=== PATIENT | female | born 1965 | race Caucasian/White ===

== ENCOUNTER 2021-10-15 19:29 | Emergency (ER) | payer OTHER ==
[~2021-10-15] VITALS: Ht 157.5 cm; Wt 45.0 kg
[2021-10-15 19:36] VITALS: BP 119/81
== END 2021-10-15 23:18 | disposition left against medical advice (07) ==
LOC: ER 19:29 → EDBD 19:29 → ER 23:18
DX: S01.00XA Unspecified open wound of scalp, initial encounter (principal); Z53.21 Procedure and treatment not carried out due to patient leaving prior to being seen by health care provider; W18.39XA Other fall on same level, initial encounter; Y93.89 Activity, other specified; Y92.89 Other specified places as the place of occurrence of the external cause; Y99.8 Other external cause status

== ENCOUNTER 2023-05-16 02:24 | Inpatient (IN) | payer OTHER ==
[~2023-05-16] VITALS: Ht 162.6 cm; Wt 36.2 kg
[2023-05-16] VITALS (63 sets, daily range): BP systolic 75–109; BP diastolic 35–77; PULSE 79–98; RESP 13–32; TEMP 89.8–98.8; O2SAT 96–100
[2023-05-16] MEDS: NOREPINEPHRINE 8 MG/250ML KIT 250 ML IV ONE (02:32)
[2023-05-16 02:57] LABS: Hemoglobin 12.8 g/dL (12.2-16.2)
[2023-05-16 02:58] LABS: Hematocrit 40.4 % (36.0-46.0); Mean Corpuscular Hemoglobin 37.6 pg (28.0-32.0); Mean Corpuscular Hgb Conc. 31.6 g/dL (32.0-36.0); Mean Corpuscular Volume 118.9 fL (80.0-100.0); Red Cell Distribution Width 14.5 % (11.8-14.3); White Blood Cell 9.7 10^3/uL (4.4-10.8)
[2023-05-16 03:07] LABS: Chloride 103 mmol/L (98-107); Sodium 136 mmol/L (136-145)
[2023-05-16 03:08] LABS: Anion Gap 22 (5-15); Carbon Dioxide 11 mmol/L (20-30)
[2023-05-16 03:09] LABS: Calcium 6.9 mg/dL (8.7-10.4)
[2023-05-16 03:13] LABS: Glucose 189 mg/dL (74-106)
[2023-05-16 03:14] LABS: BUN/Creatinine Ratio 20.6 (10.0-20.0); Blood Urea Nitrogen 13 mg/dL (9-23)
[2023-05-16 03:17] LABS: Basophils % (manual) 0 (0.0-2.0); Blast Cells 0; Eosinophils % (manual) 0 (0-7); Metamyelocytes % 0; Myelocytes % 0; Promyelocytes % 0; Reactive Lymphocytes 0
[2023-05-16 03:21] LABS: Potassium 5.6 mmol/L (3.5-5.1)
[2023-05-16 03:46] LABS: Base Excess -21.4 mmol/L (-2.0-2.0)
[2023-05-16 03:55] LABS: Urine Bacteria MANY /hpf (None Seen); Urine Blood Negative /uL (Negative); Urine Clarity HAZY (Clear); Urine Color Yellow (Yellow); Urine Mucus FEW (None Seen); Urine Protein, UAD 2+ (Negative); Urine Specific Gravity 1.025 (1.001-1.035); Urine WBC 34 /hpf (0 - 5)
[2023-05-16 04:04] LABS: Amphetamine Screen, Urine Neg (NEGATIVE); Benzodiazephine Screen, Urine Neg (NEGATIVE)
[2023-05-16 04:05] LABS: Band Neutrophils % (manual) 11; Lymphocytes % (manual) 24 (10.0-50.0); Macrocytosis Marked; Monocytes % (manual) 10 (0-12); Stomatocytes Moderate
[2023-05-16 04:05] LABS: Barbiturate Scree,Urine Neg (NEGATIVE); Cannabinoid Screen, Urine Pos (NEGATIVE); Cocaine Screen, Urine Neg (NEGATIVE); Opiate Scree,Urine Neg (NEGATIVE); Phencyclidine Screen, Urine Neg (NEGATIVE)
[2023-05-16 04:06] LABS: Platelet Estimate Decreased
[2023-05-16 04:22] LABS: Lactic Acid w/Reflex 11.5 mmol/L (0.4-2.0)
[2023-05-16] MEDS: NOREPINEPHRINE 8 MG/250ML KIT 250 ML IV SCH ×2 (04:40→07:15)
[2023-05-16] MEDS: SODIUM BICARB 8.4% 50Meq/50ml SYR Vial IV ONE ×2 (04:45→13:02)
[2023-05-16] MEDS: SODIUM CHLORIDE 0.9% 1,000 ML IV ONE ×2 (04:51→05:37)
[2023-05-16] MEDS: PROPOFOL 100 ML IV SCH (05:30)
[2023-05-16] MEDS: cefTRIAXone 1GM/50ML D5W 50 ML IV ONE (05:46)
[2023-05-16] MEDS ORDERED: ALBUTEROL SULF 2.5 MG/0.5ML(0.5%) NEB SOLN NEB PRN (06:15)
[2023-05-16] MEDS ORDERED: SODIUM ZIRCONIUM CYCL 10 GM PAK PO ONE (06:15)
[2023-05-16] MEDS ORDERED: MORPHINE SULFATE INJ 2 MG/ml SYRG IV PRN (06:15)
[2023-05-16] MEDS ORDERED: NITROGLYCERIN 0.4 MG SL TAB SL PRN (06:15)
[2023-05-16] MEDS ORDERED: ONDANSETRON HCL 4 MG/2 ML VIAL IV PRN (06:15)
[2023-05-16] MEDS ORDERED: ACETAMINOPHEN 325 MG TAB PO PRN (06:15)
[2023-05-16] MEDS: MIDAZOLAM DRIP 50 mg/50mL 50 ML IV SCH (06:28)
[2023-05-16 06:54] LABS: Base Excess -15.5 mmol/L (-2.0-2.0)
[2023-05-16 07:06] LABS: Albumin 2.8 g/dL (3.2-4.8); Alkaline Phosphatase 249 U/L (46-116); Anion Gap 23.00001 (5-15); BUN/Creatinine Ratio 22.6 (10.0-20.0); Blood Urea Nitrogen 12 mg/dL (9-23); Calcium 8.1 mg/dL (8.7-10.4); Chloride 106 mmol/L (98-107); Glucose 69 mg/dL (74-106); Potassium 5.4 mmol/L (3.5-5.1); Sodium 139 mmol/L (136-145)
[2023-05-16 07:07] LABS: Bilirubin, Total 3.6 mg/dL (0.2-1.0); Total Protein 4.8 g/dL (5.7-8.2)
[2023-05-16 07:17] LABS: Alanine Aminotransferase 3031 U/L (7-40)
[2023-05-16 07:24] LABS: Aspartate Aminotransferase > 6000 U/L (13-40)
[2023-05-16 07:26] LABS: Carbon Dioxide < 10 mmol/L (20-30)
[2023-05-16] MEDS: SODIUM ZIRCONIUM CYCL 10 GM PAK GT ONE (08:32)
[2023-05-16] MEDS: SODIUM BICARB 50mEq/50ml Vial 50 ML in SOD CHL 0.45% 1,000 ML IV SCH (09:00)
[2023-05-16] MEDS: DEXTROSE (50%) 50ML SYRG IV ONE (09:01)
[2023-05-16] MEDS: SODIUM CHLORIDE 0.9% 1,000 ML IV SCH ×2 (09:40→15:54)
[2023-05-16] MEDS: ENOXAPARIN SOD 40 MG/0.4 ML SYRINGE SC SCH (11:05)
[2023-05-16] MEDS: fentaNYL Drip 2500mCg/250mlNS 250 ML IV SCH (13:05)
[2023-05-16] MEDS: PANTOPRAZOLE 40 MG/10 ML VIAL INJ IV SCH (14:02)
[2023-05-16] MEDS: MEROPENEM 1GM IVPB 50 ML IV SCH (14:02)
[2023-05-16 14:43] LABS: Chloride 110 mmol/L (98-107); Potassium 3.5 mmol/L (3.5-5.1)
[2023-05-16 14:44] LABS: Anion Gap 16 (5-15); Calcium 6.6 mg/dL (8.5-10.1); Carbon Dioxide 20 mmol/L (20-30)
[2023-05-16 14:49] LABS: BUN/Creatinine Ratio 17.3 (10.0-20.0); Blood Urea Nitrogen 17 mg/dL (9-23); Glucose 160 mg/dL (74-106)
[2023-05-16 14:52] LABS: Sodium 146 mmol/L (136-145)
[2023-05-16 14:54] LABS: Lactic Acid w/Reflex 6.1 mmol/L (0.4-2.0)
[2023-05-16] MEDS: SODIUM CHLORIDE 0.9% 500 ML IV ONE ×2 (15:54→20:40)
[2023-05-16] MEDS: THIAMINE 100mg/ml INJ (200mg/2ml VIAL) IV SCH (16:38)
[2023-05-16] MEDS: FOLIC ACID 1 MG in D5W 5% 50 ML INJ ONE (16:43)
[2023-05-16] MEDS: ALBUMIN 5% 250 ML IV ONE (20:35)
[2023-05-16] MEDS: VASOPRESSIN 20 UNITS in SODIUM CHL 0.9% 99 ML IV SCH (22:16)
[2023-05-17] VITALS (95 sets, daily range): BP systolic 82–112; BP diastolic 49–77; PULSE 80–99; RESP 14–42; TEMP 97–99.1; O2SAT 93–100
[2023-05-17 04:21] LABS: Basophils # (auto) 0 10 ^3/uL (0-0.2); Basophils % (auto) 0.1 % (0.0-2.0); Hemoglobin 12.2 g/dL (12.2-16.2); Neutrophils # (auto) 16.4 10 ^3/uL (1.6-8.6); Red Blood Cells 3.23 10^6/uL (4.0-5.20); Red Cell Distribution Width 14.2 % (11.8-14.3); White Blood Cell 18.4 10^3/uL (4.4-10.8)
[2023-05-17 04:24] LABS: Eosinophils # (auto) 0.1 10 ^3/uL (0-0.8); Eosinophils % (auto) 0.4 % (0.0-7.0); Hematocrit 37.5 % (36.0-46.0); Lymphocytes # (auto) 1.7 10 ^3/uL (0.4-5.4); Lymphocytes % (auto) 9.1 % (10.0-50.0); Mean Corpuscular Hemoglobin 37.6 pg (28.0-32.0); Mean Corpuscular Hgb Conc. 32.4 g/dL (32.0-36.0); Mean Corpuscular Volume 116.2 fL (80.0-100.0); Monocytes # (auto) 0.2 10 ^3/uL (0-1.3); Monocytes % (auto) 1.3 % (0.0-12.0); Neutrophils % (auto) 89.1 % (37.0-80.0); Nucleated Red Blood Cells % 0.6 %
[2023-05-17 04:46] LABS: Albumin 2.6 g/dL (3.2-4.8); Alkaline Phosphatase 143 U/L (46-116); Anion Gap 13 (5-15); BUN/Creatinine Ratio 9.9 (10.0-20.0); Bilirubin, Total 4.9 mg/dL (0.2-1.0); Blood Urea Nitrogen 16 mg/dL (9-23); Carbon Dioxide 20 mmol/L (20-30); Chloride 114 mmol/L (98-107); Glucose 108 mg/dL (74-106); Potassium 3.8 mmol/L (3.5-5.1); Sodium 147 mmol/L (136-145); Total Protein 3.9 g/dL (5.7-8.2)
[2023-05-17 05:05] LABS: Lactic Acid w/Reflex 2.9 mmol/L (0.4-2.0)
[2023-05-17 05:06] LABS: Alanine Aminotransferase 1924 U/L (7-40); Aspartate Aminotransferase > 6000 U/L (13-40); Calcium 5.9 mg/dL (8.5-10.1)
[2023-05-17] MEDS ORDERED: cefTRIAXone 1GM/50ML D5W 50 ML IV SCH (06:00)
[2023-05-17] MEDS: FUROSEMIDE 20 MG/2 ML VIAL IV ONE (06:19)
[2023-05-17] MEDS: CALCIUM GLUC 1,000mg/50ml-NS 50 ML IV SCH (06:21)
[2023-05-17 07:33] LABS: Base Excess -10.3 mmol/L (-2.0-2.0)
[2023-05-17] MEDS: SOD CHL 0.45% 1,000 ML IV SCH (10:50)
[2023-05-17 14:26] LABS: Chloride 117 mmol/L (98-107); Potassium 3.8 mmol/L (3.5-5.1); Sodium 145 mmol/L (136-145)
[2023-05-17 14:27] LABS: Anion Gap 11 (5-15); Carbon Dioxide 17 mmol/L (20-30)
[2023-05-17 14:32] LABS: BUN/Creatinine Ratio 7.4 (10.0-20.0); Blood Urea Nitrogen 15 mg/dL (9-23); Glucose 79 mg/dL (74-106)
[2023-05-17] MEDS: BUMETANIDE 2.5mg/10ml (0.25 mg/ml) INJ IV ONE (15:42)
[2023-05-17] MEDS: EPINEPHrine HCL 250 ML IV SCH (18:45)
[2023-05-17] MEDS: HYDROCORTISONE SOD SUCC 100 MG/2ML INJ VIAL IV SCH (21:04)
[2023-05-18] VITALS (103 sets, daily range): BP systolic 87–154; BP diastolic 53–97; PULSE 57–105; RESP 14–28; TEMP 97–99.1; O2SAT 84–100
[2023-05-18] MEDS: MEROPENEM 1GM IVPB 50 ML IV SCH (01:16)
[2023-05-18 03:54] LABS: Basophils # (auto) 0 10 ^3/uL (0-0.2); Eosinophils # (auto) 0.1 10 ^3/uL (0-0.8); Monocytes # (auto) 0.4 10 ^3/uL (0-1.3); Neutrophils # (auto) 14.8 10 ^3/uL (1.6-8.6); White Blood Cell 16.4 10^3/uL (4.4-10.8)
[2023-05-18 03:56] LABS: Basophils % (auto) 0.1 % (0.0-2.0); Eosinophils % (auto) 0.5 % (0.0-7.0); Hematocrit 39.1 % (36.0-46.0); Hemoglobin 12.7 g/dL (12.2-16.2); Lymphocytes % (auto) 6.4 % (10.0-50.0); Mean Corpuscular Hgb Conc. 32.4 g/dL (32.0-36.0); Mean Corpuscular Volume 117.2 fL (80.0-100.0); Monocytes % (auto) 2.3 % (0.0-12.0); Neutrophils % (auto) 90.7 % (37.0-80.0); Nucleated Red Blood Cells % 1.1 %; Red Blood Cells 3.33 10^6/uL (4.0-5.20); Red Cell Distribution Width 14.6 % (11.8-14.3)
[2023-05-18 04:13] LABS: Albumin 2.5 g/dL (3.2-4.8); Alkaline Phosphatase 196 U/L (46-116); Anion Gap 15 (5-15); BUN/Creatinine Ratio 7.3 (10.0-20.0); Bilirubin, Total 5.7 mg/dL (0.2-1.0); Blood Urea Nitrogen 20 mg/dL (9-23); Calcium 6.2 mg/dL (8.5-10.1); Carbon Dioxide 15 mmol/L (20-30); Chloride 114 mmol/L (98-107); Glucose 70 mg/dL (74-106); Potassium 3.9 mmol/L (3.5-5.1); Sodium 144 mmol/L (136-145); Total Protein 3.7 g/dL (5.7-8.2)
[2023-05-18 04:26] LABS: Alanine Aminotransferase 1295 U/L (7-40); Aspartate Aminotransferase > 6000 U/L (13-40)
[2023-05-18] MEDS: IPRATROPIUM BROM 0.5 MG/2.5ML INH SOL NEB PRN (05:35)
[2023-05-18] MEDS: ALBUTEROL SULF 2.5 MG/0.5ML(0.5%) NEB SOLN NEB PRN (05:35)
[2023-05-18 07:39] LABS: Base Excess -15.2 mmol/L (-2.0-2.0)
[2023-05-18 08:55] LABS: Hepatitis B Surface Antigen Negative (Negative)
[2023-05-18 09:15] LABS: Hepatitis A Ab IgM Negative; Hepatitis B Core IgM Negative
[2023-05-18 09:16] LABS: Hepatitis C Antibody Negative (Negative)
[2023-05-18] MEDS: SODIUM BICARB 50mEq/50ml Vial 150 ML in D5W 5% 1,000 ML IV SCH (09:50)
[2023-05-18] MEDS ORDERED: ENOXAPARIN SOD 30 MG/0.3 ML SYRINGE SC SCH (10:00)
[2023-05-18 14:44] LABS: Base Excess -14.1 mmol/L (-2.0-2.0)
[2023-05-18] MEDS: LACTULOSE 10g/15ml SOLN 473ML PR ONE (17:25)
[2023-05-18] MEDS: MEROPENEM 500MG IVPB 50 ML IV SCH (18:07)
[2023-05-18 22:13] LABS: Protein, Urine 159.5 mg/dL (0.0-11.9)
[2023-05-18 22:16] LABS: Creatinine, Urine 19.12 mg/dL (30.0-125.0)
[2023-05-18] MEDS: METOCLOPRAMIDE HCL 5MG/ml INJ 2ml VIAL IV SCH (22:26)
[2023-05-18] MEDS: metroNIDAZOLE 500MG/100ML 100 ML IV SCH (22:47)
[2023-05-19] VITALS (112 sets, daily range): BP systolic 79–138; BP diastolic 60–100; PULSE 54–162; RESP 17–29; TEMP 97.6–98.8; O2SAT 87–100
[2023-05-19 04:27] LABS: Basophils # (auto) 0 10 ^3/uL (0-0.2); Eosinophils # (auto) 0 10 ^3/uL (0-0.8); Eosinophils % (auto) 0.4 % (0.0-7.0); Hemoglobin 8.6 g/dL (12.2-16.2); Nucleated Red Blood Cells % 0.3 %; White Blood Cell 10.7 10^3/uL (4.4-10.8)
[2023-05-19 04:29] LABS: Basophils % (auto) 0.1 % (0.0-2.0); Hematocrit 25.9 % (36.0-46.0); Lymphocytes # (auto) 1.2 10 ^3/uL (0.4-5.4); Lymphocytes % (auto) 10.9 % (10.0-50.0); Mean Corpuscular Hemoglobin 37.6 pg (28.0-32.0); Monocytes # (auto) 0.6 10 ^3/uL (0-1.3); Monocytes % (auto) 5.3 % (0.0-12.0); Neutrophils # (auto) 8.9 10 ^3/uL (1.6-8.6); Neutrophils % (auto) 83.3 % (37.0-80.0); Red Blood Cells 2.27 10^6/uL (4.0-5.20); Red Cell Distribution Width 14.4 % (11.8-14.3)
[2023-05-19 04:39] LABS: Alanine Aminotransferase 671 U/L (7-40); Alkaline Phosphatase 189 U/L (46-116); Anion Gap 13 (5-15); Blood Urea Nitrogen 25 mg/dL (9-23); Carbon Dioxide 19 mmol/L (20-30); Chloride 112 mmol/L (98-107); Glucose 200 mg/dL (74-106); Potassium 2.8 mmol/L (3.5-5.1); Sodium 144 mmol/L (136-145)
[2023-05-19 04:40] LABS: Albumin 1.9 g/dL (3.2-4.8); Bilirubin, Total 5.2 mg/dL (0.2-1.0); Total Protein 3.1 g/dL (5.7-8.2)
[2023-05-19 04:47] LABS: INR 2.1 (0.9-1.15)
[2023-05-19 04:50] LABS: Aspartate Aminotransferase 2174 U/L (13-40)
[2023-05-19 04:54] LABS: Calcium 5.6 mg/dL (8.7-10.4)
[2023-05-19] MEDS: CALCIUM GLUC 1,000mg/50ml-NS 50 ML IV ONE (06:40)
[2023-05-19] MEDS: POTASSIUM CHL 20MEQ/100ML 100 ML IV SCH (06:48)
[2023-05-19] MEDS: IPRATROPIUM BROM 0.5 MG/2.5ML INH SOL NEB SCH (12:37)
[2023-05-19] MEDS: ALBUTEROL SULF 2.5 MG/0.5ML(0.5%) NEB SOLN NEB SCH (12:38)
[2023-05-19] MEDS: ACETYLCYSTEINE 10 %(100MG/ML) SOL 4ML NEB SCH (12:38)
[2023-05-19 15:34] LABS: Base Excess -0.3 mmol/L (-2.0-2.0)
[2023-05-19] MEDS: AMIODARONE 450mg/250ml AE 250 ML IV SCH (20:30)
[2023-05-19] MEDS: AMIODARONE 450mg/250ml AE 250 ML IV ONE (20:30)
[2023-05-19] MEDS ORDERED: LORazepam 2MG/ML-1ML VIAL IV PRN (21:00)
[2023-05-20] VITALS (104 sets, daily range): BP systolic 32–112; BP diastolic 17–83; PULSE 56–76; RESP 15–26; TEMP 96.1–98.1; O2SAT 94–100
[2023-05-20] MEDS: AMIODARONE 450mg/250ml AE 250 ML IV SCH (02:30)
[2023-05-20 04:33] LABS: Basophils # (auto) 0 10 ^3/uL (0-0.2); Eosinophils # (auto) 0 10 ^3/uL (0-0.8); Eosinophils % (auto) 0.2 % (0.0-7.0); Monocytes # (auto) 0.9 10 ^3/uL (0-1.3); Neutrophils % (auto) 84.9 % (37.0-80.0); White Blood Cell 10.5 10^3/uL (4.4-10.8)
[2023-05-20 04:35] LABS: Basophils % (auto) 0.3 % (0.0-2.0); Hematocrit 35.3 % (36.0-46.0); Lymphocytes # (auto) 0.7 10 ^3/uL (0.4-5.4); Lymphocytes % (auto) 6.4 % (10.0-50.0); Mean Corpuscular Hemoglobin 37.6 pg (28.0-32.0); Mean Corpuscular Hgb Conc. 34.1 g/dL (32.0-36.0); Mean Corpuscular Volume 110.3 fL (80.0-100.0); Monocytes % (auto) 8.2 % (0.0-12.0); Neutrophils # (auto) 8.9 10 ^3/uL (1.6-8.6); Nucleated Red Blood Cells % 0.5 %; Red Cell Distribution Width 13.8 % (11.8-14.3)
[2023-05-20 05:08] LABS: Alanine Aminotransferase 446 U/L (7-40); Alkaline Phosphatase 223 U/L (46-116); Anion Gap 10 (5-15); Blood Urea Nitrogen 30 mg/dL (9-23); Carbon Dioxide 25 mmol/L (20-30); Chloride 106 mmol/L (98-107); Glucose 215 mg/dL (74-106); Potassium 3.1 mmol/L (3.5-5.1); Sodium 141 mmol/L (136-145)
[2023-05-20 05:09] LABS: Bilirubin, Total 5.8 mg/dL (0.2-1.0); Total Protein 3.5 g/dL (5.7-8.2)
[2023-05-20 05:20] LABS: Aspartate Aminotransferase 997 U/L (13-40)
[2023-05-20 05:28] LABS: BUN/Creatinine Ratio 7.3 (10.0-20.0); Calcium 5.7 mg/dL (8.7-10.4)
[2023-05-20 06:53] LABS: Base Excess 1.8 mmol/L (-2.0-2.0)
[2023-05-20] MEDS: POTASSIUM CHL 20MEQ/100ML 100 ML IV ONE (08:42)
[2023-05-20] MEDS: CALCIUM GLUC 1,000mg/50ml-NS 50 ML IV SCH (08:42)
[2023-05-20] MEDS: cefTRIAXone 1GM/50ML D5W 50 ML IV SCH (08:42)
[2023-05-21] VITALS (103 sets, daily range): BP systolic 89–145; BP diastolic 59–100; PULSE 64–81; RESP 13–27; TEMP 97.6–98.1; O2SAT 9–97
[2023-05-21 03:44] LABS: Basophils # (auto) 0 10 ^3/uL (0-0.2); Eosinophils # (auto) 0 10 ^3/uL (0-0.8); Eosinophils % (auto) 0.2 % (0.0-7.0); Hemoglobin 11.8 g/dL (12.2-16.2); Lymphocytes # (auto) 0.7 10 ^3/uL (0.4-5.4); Neutrophils # (auto) 7.7 10 ^3/uL (1.6-8.6)
[2023-05-21 03:46] LABS: Basophils % (auto) 0.4 % (0.0-2.0); Hematocrit 34.4 % (36.0-46.0); Lymphocytes % (auto) 7.3 % (10.0-50.0); Mean Corpuscular Hgb Conc. 34.3 g/dL (32.0-36.0); Mean Corpuscular Volume 110.8 fL (80.0-100.0); Monocytes # (auto) 1.3 10 ^3/uL (0-1.3); Monocytes % (auto) 12.9 % (0.0-12.0); Neutrophils % (auto) 79.2 % (37.0-80.0); Nucleated Red Blood Cells % 0.3 %; Red Cell Distribution Width 14.1 % (11.8-14.3); White Blood Cell 9.7 10^3/uL (4.4-10.8)
[2023-05-21 04:02] LABS: Alanine Aminotransferase 275 U/L (7-40); Albumin 2.1 g/dL (3.2-4.8); Alkaline Phosphatase 226 U/L (46-116); Anion Gap 8 (5-15); Aspartate Aminotransferase 517 U/L (13-40); BUN/Creatinine Ratio 7.2 (10.0-20.0); Bilirubin, Total 5.7 mg/dL (0.2-1.0); Blood Urea Nitrogen 32 mg/dL (9-23); Calcium 6.5 mg/dL (8.7-10.4); Carbon Dioxide 31 mmol/L (20-30); Chloride 99 mmol/L (98-107); Glucose 185 mg/dL (74-106); Sodium 138 mmol/L (136-145); Total Protein 3.6 g/dL (5.7-8.2)
[2023-05-21 06:35] LABS: Base Excess 5.2 mmol/L (-2.0-2.0)
[2023-05-21] MEDS: POTASSIUM CHL 20MEQ/100ML 100 ML IV SCH (20:10)
[2023-05-21] MEDS: MAGNESIUM SULFATE 1GM/100ML 100 ML IV SCH (22:13)
[2023-05-22] VITALS (106 sets, daily range): BP systolic 97–171; BP diastolic 65–115; PULSE 62–96; RESP 11–27; TEMP 97.9–98.6; O2SAT 89–98
[2023-05-22 04:26] LABS: Anion Gap 5 (5-15); Carbon Dioxide 34 mmol/L (20-30); Chloride 97 mmol/L (98-107); Lymphocytes # (auto) 0.6 10 ^3/uL (0.4-5.4); Neutrophils # (auto) 7.1 10 ^3/uL (1.6-8.6); Nucleated Red Blood Cells % 0.4 %; Potassium 3.3 mmol/L (3.5-5.1); Red Blood Cells 3.19 10^6/uL (4.0-5.20); Sodium 136 mmol/L (136-145)
[2023-05-22 04:27] LABS: Calcium 6.5 mg/dL (8.7-10.4)
[2023-05-22 04:28] LABS: Basophils # (auto) 0 10 ^3/uL (0-0.2); Basophils % (auto) 0.4 % (0.0-2.0); Eosinophils # (auto) 0 10 ^3/uL (0-0.8); Eosinophils % (auto) 0.4 % (0.0-7.0); Hematocrit 34.5 % (36.0-46.0); Hemoglobin 11.7 g/dL (12.2-16.2); Lymphocytes % (auto) 6.8 % (10.0-50.0); Mean Corpuscular Hemoglobin 36.8 pg (28.0-32.0); Mean Corpuscular Volume 108.2 fL (80.0-100.0); Monocytes # (auto) 1.5 10 ^3/uL (0-1.3); Monocytes % (auto) 16.3 % (0.0-12.0); Neutrophils % (auto) 76.1 % (37.0-80.0); Red Cell Distribution Width 14.3 % (11.8-14.3); White Blood Cell 9.4 10^3/uL (4.4-10.8)
[2023-05-22 04:32] LABS: Blood Urea Nitrogen 34 mg/dL (9-23); Glucose 141 mg/dL (74-106)
[2023-05-22 04:55] LABS: Macrocytosis Moderate; Platelet Estimate Decreased; Stomatocytes Moderate; Target Cell FEW
[2023-05-22 07:14] LABS: Base Excess 10.9 mmol/L (-2.0-2.0)
[2023-05-22] MEDS: MIDAZOLAM HCL 2MG/2ML 2ml VIAL (1mg/ml) ONE ×2 (13:42→13:56)
[2023-05-22] MEDS: MIDAZOLAM HCL 2MG/2ML 2ml VIAL (1mg/ml) IV ONE (13:56)
[2023-05-22] MEDS: SODIUM CHL 0.9% 1000 ML BAG XX ONE (14:15)
[2023-05-22] MEDS: FLUCONAZOLE 200MG/100ML 100 ML IV SCH (15:37)
[2023-05-22] MEDS: ALBUMIN 25% 100 ML IV ONE (19:15)
[2023-05-22] MEDS: CATHFLO ACTIVASE (ALTEPLASE) 2 MG VIAL IV ONE (19:15)
[2023-05-22] MEDS: HEPARIN 1,000 UNITS/ml 1ML VIAL IV ONE ×2 (21:15)
[2023-05-23] VITALS (104 sets, daily range): BP systolic 87–133; BP diastolic 58–95; PULSE 63–107; RESP 15–28; TEMP 97.3–98; O2SAT 88–99
[2023-05-23 05:12] LABS: Red Cell Distribution Width 14.3 % (11.8-14.3); White Blood Cell 11.3 10^3/uL (4.4-10.8)
[2023-05-23 05:15] LABS: Hematocrit 32.5 % (36.0-46.0); Hemoglobin 10.8 g/dL (12.2-16.2); Mean Corpuscular Hgb Conc. 33.4 g/dL (32.0-36.0); Mean Corpuscular Volume 110.9 fL (80.0-100.0); Red Blood Cells 2.93 10^6/uL (4.0-5.20)
[2023-05-23 05:20] LABS: Basophils % (manual) 0 (0.0-2.0); Blast Cells 0; Eosinophils % (manual) 0 (0-7); Metamyelocytes % 0; Myelocytes % 0; Promyelocytes % 0; Reactive Lymphocytes 0
[2023-05-23 05:26] LABS: Calcium 7.6 mg/dL (8.7-10.4); Chloride 99 mmol/L (98-107); Potassium 3.4 mmol/L (3.5-5.1); Sodium 138 mmol/L (136-145)
[2023-05-23 05:27] LABS: Anion Gap 6 (5-15); Carbon Dioxide 33 mmol/L (20-30)
[2023-05-23 05:32] LABS: BUN/Creatinine Ratio 5.6 (10.0-20.0); Glucose 94 mg/dL (74-106)
[2023-05-23 06:09] LABS: Blood Urea Nitrogen 23 mg/dL (9-23)
[2023-05-23] MEDS: SODIUM CHL 0.9% 1000 ML BAG XX ONE (07:00)
[2023-05-23 07:44] LABS: Band Neutrophils % (manual) 1; Lymphocytes % (manual) 13 (10.0-50.0); Monocytes % (manual) 19 (0-12)
[2023-05-23 07:46] LABS: Platelet Estimate Decreased
[2023-05-23 07:47] LABS: Macrocytosis Moderate; Stomatocytes Many
[2023-05-23] MEDS ORDERED: MIDAZOLAM HCL 2MG/2ML 2ml VIAL (1mg/ml) IV ONE (08:45)
[2023-05-23] MEDS: LACTULOSE 20Gm/30ML SOLN GT SCH (11:04)
[2023-05-23] MEDS: AMIODARONE HCL 200 MG TAB PO SCH (11:04)
[2023-05-23 11:31] LABS: Base Excess 7.7 mmol/L (-2.0-2.0)
[2023-05-23] MEDS: ALBUMIN 25% 100 ML IV PRN (15:00)
[2023-05-23] MEDS: METOCLOPRAMIDE 10 mg/10ml ORAL soln GT SCH (15:10)
[2023-05-24] VITALS (106 sets, daily range): BP systolic 86–126; BP diastolic 56–89; PULSE 84–113; RESP 14–27; TEMP 97.5–98.8; O2SAT 91–99
[2023-05-24 04:08] LABS: Anion Gap 7 (5-15); Carbon Dioxide 33 mmol/L (20-30); Chloride 100 mmol/L (98-107); Potassium 3.5 mmol/L (3.5-5.1); Sodium 140 mmol/L (136-145)
[2023-05-24 04:10] LABS: Calcium 8.7 mg/dL (8.7-10.4)
[2023-05-24 04:14] LABS: Blood Urea Nitrogen 17 mg/dL (9-23); Glucose 71 mg/dL (74-106)
[2023-05-24 07:18] LABS: Base Excess 8.3 mmol/L (-2.0-2.0)
[2023-05-24] MEDS: FLUCONAZOLE 100 MG TAB PO SCH (09:44)
[2023-05-24] MEDS: AMIODARONE HCL 200 MG TAB PO SCH (09:45)
[2023-05-24] MEDS: METOPROLOL TARTRATE 25 MG TAB PO SCH (21:46)
[2023-05-25] VITALS (105 sets, daily range): BP systolic 85–118; BP diastolic 55–87; PULSE 70–102; RESP 15–20; TEMP 97.8–98.6; O2SAT 89–99
[2023-05-25 04:06] LABS: Hemoglobin 8.8 g/dL (12.2-16.2)
[2023-05-25 04:09] LABS: Hematocrit 26.1 % (36.0-46.0); Mean Corpuscular Hemoglobin 37.9 pg (28.0-32.0); Mean Corpuscular Hgb Conc. 33.9 g/dL (32.0-36.0); Mean Corpuscular Volume 111.8 fL (80.0-100.0); Red Blood Cells 2.33 10^6/uL (4.0-5.20); Red Cell Distribution Width 14.8 % (11.8-14.3); White Blood Cell 9.1 10^3/uL (4.4-10.8)
[2023-05-25 04:23] LABS: Alanine Aminotransferase 37 U/L (7-40); Albumin 2.6 g/dL (3.2-4.8); Alkaline Phosphatase 244 U/L (46-116); Anion Gap 3 (5-15); Aspartate Aminotransferase 119 U/L (13-40); BUN/Creatinine Ratio 5.3 (10.0-20.0); Basophils % (manual) 0 (0.0-2.0); Blast Cells 0; Blood Urea Nitrogen 22 mg/dL (9-23); Calcium 8.6 mg/dL (8.5-10.1); Carbon Dioxide 34 mmol/L (20-30); Chloride 102 mmol/L (98-107); Glucose 109 mg/dL (74-106); Metamyelocytes % 0; Myelocytes % 0; Potassium 3.3 mmol/L (3.5-5.1); Promyelocytes % 0; Reactive Lymphocytes 0; Sodium 139 mmol/L (136-145)
[2023-05-25 04:24] LABS: Bilirubin, Total 6.1 mg/dL (0.2-1.0); Total Protein 4.2 g/dL (5.7-8.2)
[2023-05-25 04:55] LABS: Anisocytosis Slight; Band Neutrophils % (manual) 10; Eosinophils % (manual) 2 (0-7); Hypochromia Slight; Lymphocytes % (manual) 10 (10.0-50.0); Macrocytosis Moderate; Monocytes % (manual) 13 (0-12); Platelet Estimate Decreased; Stomatocytes Many
[2023-05-25] MEDS: SODIUM CHL 0.9% 1000 ML BAG XX ONE (07:00)
[2023-05-25 07:42] LABS: Base Excess 5.1 mmol/L (-2.0-2.0)
[2023-05-25] MEDS: ALBUMIN 25% 100 ML IV SCH (14:19)
[2023-05-26] VITALS (107 sets, daily range): BP systolic 80–141; BP diastolic 49–98; PULSE 73–107; RESP 11–44; TEMP 98.1–98.6; O2SAT 86–98
[2023-05-26 04:13] LABS: Hemoglobin 8.1 g/dL (12.2-16.2)
[2023-05-26 04:17] LABS: Hematocrit 24.4 % (36.0-46.0); Mean Corpuscular Hemoglobin 37.4 pg (28.0-32.0); Mean Corpuscular Volume 113.5 fL (80.0-100.0); Red Blood Cells 2.15 10^6/uL (4.0-5.20); Red Cell Distribution Width 14.7 % (11.8-14.3); White Blood Cell 13.3 10^3/uL (4.4-10.8)
[2023-05-26 04:23] LABS: Basophils # (auto) 0 10 ^3/uL (0-0.2); Basophils % (auto) 0.1 % (0.0-2.0); Basophils % (manual) 0 (0.0-2.0); Blast Cells 0; Eosinophils # (auto) 0.2 10 ^3/uL (0-0.8); Eosinophils % (auto) 1.7 % (0.0-7.0); Eosinophils % (manual) 0 (0-7); Lymphocytes % (auto) 7.8 % (10.0-50.0); Metamyelocytes % 0; Monocytes # (auto) 1.5 10 ^3/uL (0-1.3); Monocytes % (auto) 11.5 % (0.0-12.0); Monocytes % (manual) 0 (0-12); Myelocytes % 0; Neutrophils # (auto) 10.5 10 ^3/uL (1.6-8.6); Neutrophils % (auto) 78.9 % (37.0-80.0); Nucleated Red Blood Cells % 0.1 %; Platelet Estimate Decreased; Promyelocytes % 0; Reactive Lymphocytes 0
[2023-05-26 04:33] LABS: Alanine Aminotransferase 32 U/L (7-40); Albumin 3.1 g/dL (3.2-4.8); Alkaline Phosphatase 206 U/L (46-116); Anion Gap 6 (5-15); Aspartate Aminotransferase 101 U/L (13-40); BUN/Creatinine Ratio 5.1 (10.0-20.0); Blood Urea Nitrogen 17 mg/dL (9-23); Carbon Dioxide 32 mmol/L (20-30); Chloride 105 mmol/L (98-107); Glucose 84 mg/dL (74-106); Potassium 3.4 mmol/L (3.5-5.1); Sodium 143 mmol/L (136-145)
[2023-05-26 04:34] LABS: Bilirubin, Total 5.9 mg/dL (0.2-1.0); Total Protein 4.6 g/dL (5.7-8.2)
[2023-05-26 04:39] LABS: Lymphocytes % (manual) 0 (10.0-50.0)
[2023-05-26 13:13] LABS: Base Excess 5.9 mmol/L (-2.0-2.0)
[2023-05-26] MEDS: ACETYLCYSTEINE 10 %(100MG/ML) SOL 4ML NEB SCH (19:33)
[2023-05-27] VITALS (104 sets, daily range): BP systolic 77–157; BP diastolic 32–126; PULSE 58–95; RESP 10–33; TEMP 97.8–98.7; O2SAT 90–100
[2023-05-27 04:53] LABS: Mean Corpuscular Hgb Conc. 31.9 g/dL (32.0-36.0)
[2023-05-27 04:56] LABS: Hematocrit 23.6 % (36.0-46.0); Hemoglobin 7.5 g/dL (12.2-16.2); Mean Corpuscular Hemoglobin 36.8 pg (28.0-32.0); Mean Corpuscular Volume 115.5 fL (80.0-100.0); Red Blood Cells 2.05 10^6/uL (4.0-5.20); Red Cell Distribution Width 14.3 % (11.8-14.3)
[2023-05-27 04:59] LABS: Basophils % (manual) 0 (0.0-2.0); Blast Cells 0; Eosinophils % (manual) 0 (0-7); Metamyelocytes % 0; Myelocytes % 0; Promyelocytes % 0; Reactive Lymphocytes 0
[2023-05-27 05:08] LABS: Alanine Aminotransferase 15 U/L (7-40); Alkaline Phosphatase 243 U/L (46-116); Anion Gap 8 (5-15); BUN/Creatinine Ratio 4.3 (10.0-20.0); Blood Urea Nitrogen 12 mg/dL (9-23); Carbon Dioxide 30 mmol/L (20-30); Chloride 104 mmol/L (98-107); Glucose 85 mg/dL (74-106); Potassium 3.6 mmol/L (3.5-5.1); Sodium 142 mmol/L (136-145)
[2023-05-27 05:09] LABS: Albumin 3.2 g/dL (3.2-4.8)
[2023-05-27 05:10] LABS: Aspartate Aminotransferase 123 U/L (13-40); Bilirubin, Total 6.2 mg/dL (0.2-1.0)
[2023-05-27 05:47] LABS: Anisocytosis Slight; Band Neutrophils % (manual) 8; Lymphocytes % (manual) 12 (10.0-50.0); Macrocytosis Moderate; Monocytes % (manual) 12 (0-12); Platelet Estimate Decreased; Stomatocytes Many
[2023-05-27 08:32] LABS: Base Excess 2.2 mmol/L (-2.0-2.0)
[2023-05-27] MEDS: phytonadione 10 MG in SODIUM CHL 0.9% 50 ML IV ONE (10:15)
[2023-05-27 11:13] LABS: Hematocrit 23.7 % (36.0-46.0); Hemoglobin 7.4 g/dL (12.2-16.2)
[2023-05-27 11:16] LABS: Base Excess 0.8 mmol/L (-2.0-2.0)
[2023-05-27 19:00] LABS: Hematocrit 24.8 % (36.0-46.0); Hemoglobin 7.9 g/dL (12.2-16.2)
[2023-05-27] MEDS: BUMETANIDE 1mg/4ml VIAL (0.25mg/ml) IV ONE (19:57)
[2023-05-27 22:45] LABS: Hematocrit 21.8 % (36.0-46.0)
[2023-05-27 22:53] LABS: Hemoglobin 6.9 g/dL (12.2-16.2)
[2023-05-28] VITALS (107 sets, daily range): BP systolic 71–140; BP diastolic 45–98; PULSE 66–107; RESP 8–29; TEMP 98.3–99.4; O2SAT 90–100
[2023-05-28 03:44] LABS: Hemoglobin 7.2 g/dL (12.2-16.2); White Blood Cell 16.9 10^3/uL (4.4-10.8)
[2023-05-28 03:47] LABS: Hematocrit 22.6 % (36.0-46.0); Mean Corpuscular Hemoglobin 36.6 pg (28.0-32.0); Mean Corpuscular Volume 114.6 fL (80.0-100.0); Red Blood Cells 1.98 10^6/uL (4.0-5.20); Red Cell Distribution Width 14.4 % (11.8-14.3)
[2023-05-28 04:05] LABS: Basophils % (manual) 0 (0.0-2.0); Blast Cells 0; Eosinophils % (manual) 0 (0-7); Metamyelocytes % 0; Promyelocytes % 0; Reactive Lymphocytes 0
[2023-05-28 04:15] LABS: INR 1.16 (0.9-1.15); Prothrombin Time 12.1 sec (9.3-11.8)
[2023-05-28 04:17] LABS: Alanine Aminotransferase 23 U/L (7-40); Albumin 2.9 g/dL (3.2-4.8); Alkaline Phosphatase 239 U/L (46-116); Anion Gap 9 (5-15); Aspartate Aminotransferase 147 U/L (13-40); BUN/Creatinine Ratio 4.7 (10.0-20.0); Bilirubin, Total 5.9 mg/dL (0.2-1.0); Blood Urea Nitrogen 17 mg/dL (9-23); Calcium 8.7 mg/dL (8.7-10.4); Carbon Dioxide 26 mmol/L (20-30); Chloride 106 mmol/L (98-107); Glucose 83 mg/dL (74-106); Potassium 3.5 mmol/L (3.5-5.1); Sodium 141 mmol/L (136-145); Total Protein 4.8 g/dL (5.7-8.2)
[2023-05-28] MEDS: BUMETANIDE 1mg/4ml VIAL (0.25mg/ml) IV SCH (05:24)
[2023-05-28 08:35] LABS: Base Excess -2.8 mmol/L (-2.0-2.0)
[2023-05-28 09:43] LABS: Band Neutrophils % (manual) 6; Lymphocytes % (manual) 5 (10.0-50.0); Monocytes % (manual) 10 (0-12); Myelocytes % 3
[2023-05-28 09:44] LABS: Platelet Estimate Decreased
[2023-05-28 14:59] LABS: Base Excess -0.1 mmol/L (-2.0-2.0)
[2023-05-28] MEDS: FLUCONAZOLE 200MG/100ML 100 ML IV ONE (15:28)
[2023-05-28] MEDS: ACETAMINOPHEN 650 mg PER 20.3 mL UD GT ONE (15:45)
[2023-05-28] MEDS: PIPERACILLIN-TAZOB 2.25GM 50 ML IV SCH (22:24)
[2023-05-29] VITALS (111 sets, daily range): BP systolic 86–143; BP diastolic 56–102; PULSE 60–108; RESP 10–26; TEMP 97.8–98.6; O2SAT 84–100
[2023-05-29 04:06] LABS: White Blood Cell 12.8 10^3/uL (4.4-10.8)
[2023-05-29 04:08] LABS: Hematocrit 19.4 % (36.0-46.0); Mean Corpuscular Hemoglobin 36.6 pg (28.0-32.0); Mean Corpuscular Hgb Conc. 31.3 g/dL (32.0-36.0); Mean Corpuscular Volume 116.7 fL (80.0-100.0); Red Blood Cells 1.66 10^6/uL (4.0-5.20); Red Cell Distribution Width 14.1 % (11.8-14.3)
[2023-05-29 04:15] LABS: INR 1.23 (0.9-1.15); Prothrombin Time 12.7 sec (9.3-11.8)
[2023-05-29 04:19] LABS: Alanine Aminotransferase 38 U/L (7-40); Albumin 2.8 g/dL (3.2-4.8); Alkaline Phosphatase 209 U/L (46-116); Anion Gap 10 (5-15); Aspartate Aminotransferase 111 U/L (13-40); BUN/Creatinine Ratio 4.3 (10.0-20.0); Bilirubin, Total 4.7 mg/dL (0.2-1.0); Blood Urea Nitrogen 16 mg/dL (9-23); Calcium 8.5 mg/dL (8.7-10.4); Carbon Dioxide 26 mmol/L (20-30); Chloride 107 mmol/L (98-107); Glucose 83 mg/dL (74-106); Potassium 3.1 mmol/L (3.5-5.1); Sodium 143 mmol/L (136-145); Total Protein 4.6 g/dL (5.7-8.2)
[2023-05-29 04:22] LABS: Basophils % (manual) 0 (0.0-2.0); Blast Cells 0; Eosinophils % (manual) 0 (0-7); Hemoglobin 6.1 g/dL (12.2-16.2); Metamyelocytes % 0; Myelocytes % 0; Promyelocytes % 0; Reactive Lymphocytes 0
[2023-05-29 05:33] LABS: Basophils # (auto) 0 10 ^3/uL (0-0.2); Mean Corpuscular Volume 117.1 fL (80.0-100.0)
[2023-05-29 05:36] LABS: Basophils % (auto) 0.1 % (0.0-2.0); Eosinophils # (auto) 0.2 10 ^3/uL (0-0.8); Eosinophils % (auto) 1.1 % (0.0-7.0); Hematocrit 20.9 % (36.0-46.0); Lymphocytes # (auto) 1.7 10 ^3/uL (0.4-5.4); Lymphocytes % (auto) 12.3 % (10.0-50.0); Mean Corpuscular Hemoglobin 37.2 pg (28.0-32.0); Mean Corpuscular Hgb Conc. 31.8 g/dL (32.0-36.0); Monocytes # (auto) 1.4 10 ^3/uL (0-1.3); Monocytes % (auto) 10.2 % (0.0-12.0); Neutrophils # (auto) 10.7 10 ^3/uL (1.6-8.6); Neutrophils % (auto) 76.3 % (37.0-80.0); Nucleated Red Blood Cells % 1.3 %; Red Blood Cells 1.79 10^6/uL (4.0-5.20); Red Cell Distribution Width 14.1 % (11.8-14.3); White Blood Cell 14.1 10^3/uL (4.4-10.8)
[2023-05-29 05:44] LABS: Hemoglobin 6.7 g/dL (12.2-16.2)
[2023-05-29 07:03] LABS: Anisocytosis Slight; Band Neutrophils % (manual) 4; Large Platelets FEW; Lymphocytes % (manual) 12 (10.0-50.0); Macrocytosis Marked; Monocytes % (manual) 8 (0-12); Platelet Estimate Decreased; Stomatocytes Moderate
[2023-05-29] MEDS: FLUCONAZOLE 200MG/100ML 100 ML IV SCH (12:11)
[2023-05-29] MEDS ORDERED: PHYTONADIONE (VIT K)10 MG/ML 1ML VIAL SUBCUT ONE (12:30)
[2023-05-29] MEDS ORDERED: ALBUMIN 25% 100 ML IV PRN (12:45)
[2023-05-29] MEDS: POTASSIUM CHL 20MEQ/100ML 100 ML IV SCH (15:07)
[2023-05-29] MEDS: OCTREOTIDE ACETATE 100 MCG/ML VL SUBCUT SCH (15:58)
[2023-05-29] MEDS: diphenhdrAMINE HCL 50 MG/1 ML VL IV ONE (16:04)
[2023-05-29] MEDS: Nepro With Carb Steady 1 Liter Bottle GT SCH (16:04)
[2023-05-29] MEDS: phytonadione 10 MG in SODIUM CHL 0.9% 50 ML IV ONE (17:37)
[2023-05-30] VITALS (106 sets, daily range): BP systolic 47–147; BP diastolic 24–103; PULSE 61–111; RESP 14–33; TEMP 96.5–100.7; O2SAT 81–100
[2023-05-30 04:10] LABS: Hemoglobin 9.3 g/dL (12.2-16.2); White Blood Cell 9.9 10^3/uL (4.4-10.8)
[2023-05-30 04:12] LABS: Hematocrit 27.8 % (36.0-46.0); Mean Corpuscular Hemoglobin 35.9 pg (28.0-32.0); Mean Corpuscular Hgb Conc. 33.4 g/dL (32.0-36.0); Mean Corpuscular Volume 107.5 fL (80.0-100.0); Red Blood Cells 2.59 10^6/uL (4.0-5.20)
[2023-05-30 04:14] LABS: Red Cell Distribution Width 21.5 % (11.8-14.3)
[2023-05-30 04:16] LABS: Basophils % (manual) 0 (0.0-2.0); Blast Cells 0; Myelocytes % 0; Promyelocytes % 0; Reactive Lymphocytes 0
[2023-05-30 04:24] LABS: Calcium 8.9 mg/dL (8.7-10.4); Chloride 106 mmol/L (98-107); Potassium 3.9 mmol/L (3.5-5.1); Sodium 142 mmol/L (136-145)
[2023-05-30 04:25] LABS: Anion Gap 12 (5-15); Carbon Dioxide 24 mmol/L (20-30)
[2023-05-30 04:31] LABS: BUN/Creatinine Ratio 4.5 (10.0-20.0); Blood Urea Nitrogen 20 mg/dL (9-23); Glucose 124 mg/dL (74-106)
[2023-05-30 05:23] LABS: Band Neutrophils % (manual) 2; Eosinophils % (manual) 4 (0-7); Lymphocytes % (manual) 16 (10.0-50.0); Metamyelocytes % 3; Monocytes % (manual) 6 (0-12)
[2023-05-30 05:24] LABS: Anisocytosis Slight; Macrocytosis Moderate; Platelet Estimate Decreased; Polychromasia Slight; Stomatocytes Many
[2023-05-30 07:50] LABS: Base Excess -1.8 mmol/L (-2.0-2.0)
[2023-05-30] MEDS: SODIUM CHL 0.9% 1000 ML BAG XX ONE (12:43)
[2023-05-30 16:43] LABS: Base Excess -2.5 mmol/L (-2.0-2.0)
[2023-05-30] MEDS: ACETAMINOPHEN 650 MG RECT SUPP PR PRN (19:37)
[2023-05-30] MEDS: EPOETIN ALFA-EPBX 10,000 UNIT/1ML VIAL SC ONE (22:41)
[2023-05-31] VITALS (88 sets, daily range): BP systolic 82–160; BP diastolic 51–118; PULSE 68–105; RESP 16–39; TEMP 97.7–99.2; O2SAT 94–100
[2023-05-31] MEDS: LORazepam 2MG/ML-1ML VIAL IV ONE ×2 (01:12→08:27)
[2023-05-31 03:42] LABS: Hemoglobin 9.1 g/dL (12.2-16.2)
[2023-05-31 03:45] LABS: Mean Corpuscular Hemoglobin 35.1 pg (28.0-32.0); Mean Corpuscular Hgb Conc. 32.4 g/dL (32.0-36.0); Mean Corpuscular Volume 108.6 fL (80.0-100.0); Red Blood Cells 2.58 10^6/uL (4.0-5.20); White Blood Cell 11.9 10^3/uL (4.4-10.8)
[2023-05-31 03:48] LABS: Red Cell Distribution Width 21.6 % (11.8-14.3)
[2023-05-31 03:50] LABS: Basophils % (manual) 0 (0.0-2.0); Blast Cells 0; Metamyelocytes % 0; Promyelocytes % 0; Reactive Lymphocytes 0
[2023-05-31 03:51] LABS: Chloride 103 mmol/L (98-107); Potassium 3.9 mmol/L (3.5-5.1); Sodium 141 mmol/L (136-145)
[2023-05-31 03:52] LABS: Anion Gap 15 (5-15); Calcium 9.5 mg/dL (8.7-10.4); Carbon Dioxide 23 mmol/L (20-30)
[2023-05-31 03:57] LABS: BUN/Creatinine Ratio 4.3 (10.0-20.0); Blood Urea Nitrogen 17 mg/dL (9-23); Glucose 116 mg/dL (74-106)
[2023-05-31 04:31] LABS: Base Excess -5.1 mmol/L (-2.0-2.0)
[2023-05-31 04:48] LABS: Band Neutrophils % (manual) 2; Eosinophils % (manual) 1 (0-7); Lymphocytes % (manual) 11 (10.0-50.0); Monocytes % (manual) 7 (0-12); Myelocytes % 2; Platelet Estimate Decreased; Stomatocytes Many
[2023-05-31 04:49] LABS: Anisocytosis Slight; Macrocytosis Moderate; Polychromasia Slight
[2023-05-31] MEDS: LORazepam 2MG/ML-1ML VIAL ONE (08:28)
[2023-05-31] MEDS: ROCURONIUM 10MG/ML 10ML VIAL IV ONE ×2 (09:06→09:10)
[2023-05-31] MEDS: ETOMIDATE (2MG/ML) 20ML VIAL IV ONE ×2 (09:07)
[2023-05-31] MEDS: MIDAZOLAM DRIP 50 mg/50mL 50 ML IV SCH (09:15)
[2023-05-31 10:04] LABS: INR 1.3 (0.9-1.15); Partial Thromboplastin Time 31.7 SEC (24.5-34.5); Prothrombin Time 13.4 sec (9.3-11.8)
[2023-05-31] MEDS: AMIODARONE HCL 200 MG TAB PO SCH (13:40)
[2023-05-31 14:16] LABS: Base Excess -1.5 mmol/L (-2.0-2.0)
[2023-05-31] MEDS: EPOETIN ALFA-EPBX 10,000 UNIT/1ML VIAL SC ONE (21:00)
[2023-06-01] VITALS (84 sets, daily range): BP systolic 90–130; BP diastolic 6–90; PULSE 72–100; RESP 14–25; TEMP 97.7–98.7; O2SAT 97–100
[2023-06-01 04:32] LABS: Hemoglobin 8.8 g/dL (12.2-16.2)
[2023-06-01 04:35] LABS: Mean Corpuscular Hemoglobin 35.4 pg (28.0-32.0); Mean Corpuscular Hgb Conc. 31.4 g/dL (32.0-36.0); Mean Corpuscular Volume 112.5 fL (80.0-100.0); Red Blood Cells 2.48 10^6/uL (4.0-5.20); White Blood Cell 13.5 10^3/uL (4.4-10.8)
[2023-06-01 04:46] LABS: Red Cell Distribution Width 21.6 % (11.8-14.3)
[2023-06-01 04:48] LABS: Basophils % (manual) 0 (0.0-2.0); Blast Cells 0; Metamyelocytes % 0; Myelocytes % 0; Promyelocytes % 0; Reactive Lymphocytes 0
[2023-06-01 04:53] LABS: Alanine Aminotransferase 32 U/L (7-40); Albumin 3.3 g/dL (3.2-4.8); Alkaline Phosphatase 202 U/L (46-116); Anion Gap 10 (5-15); Aspartate Aminotransferase 62 U/L (13-40); BUN/Creatinine Ratio 4.1 (10.0-20.0); Blood Urea Nitrogen 13 mg/dL (9-23); Calcium 9.3 mg/dL (8.7-10.4); Carbon Dioxide 26 mmol/L (20-30); Chloride 106 mmol/L (98-107); Glucose 121 mg/dL (74-106); Potassium 3.7 mmol/L (3.5-5.1); Sodium 142 mmol/L (136-145)
[2023-06-01 04:54] LABS: Bilirubin, Total 4.6 mg/dL (0.2-1.0); Total Protein 5.5 g/dL (5.7-8.2)
[2023-06-01 05:18] LABS: Band Neutrophils % (manual) 8; Eosinophils % (manual) 1 (0-7); Lymphocytes % (manual) 18 (10.0-50.0); Monocytes % (manual) 5 (0-12)
[2023-06-01 05:19] LABS: Anisocytosis Slight; Macrocytosis Moderate; Platelet Estimate Decreased
[2023-06-01 09:17] LABS: Base Excess 2.8 mmol/L (-2.0-2.0)
[2023-06-01] MEDS: MICAFUNGIN SODIUM 100 MG in SODIUM CHL 0.9% 100 ML IV SCH (13:50)
[2023-06-01] MEDS: IODIXANOL 320MG/ML 100ML BTL IV ONE (15:48)
[2023-06-01] MEDS: LIDOCAINE 2%HCL (LOCAL ANESTH.) INJ 10ml MDV ONE (15:48)
[2023-06-01] MEDS: ANGIOMAX 250 MG VIAL IV ONE (16:31)
[2023-06-01] MEDS: SODIUM CHL 0.9% 0 ML ONE (16:31)
[2023-06-01] MEDS: EPOETIN ALFA-EPBX 10,000 UNIT/1ML VIAL SC ONE (21:59)
[2023-06-02] VITALS (105 sets, daily range): BP systolic 82–144; BP diastolic 52–90; PULSE 65–94; RESP 14–25; TEMP 98–98.8; O2SAT 86–100
[2023-06-02 04:20] LABS: Mean Corpuscular Volume 110.7 fL (80.0-100.0)
[2023-06-02 04:25] LABS: Hematocrit 25.6 % (36.0-46.0); Hemoglobin 8.3 g/dL (12.2-16.2); Mean Corpuscular Hemoglobin 35.8 pg (28.0-32.0); Mean Corpuscular Hgb Conc. 32.4 g/dL (32.0-36.0); Red Blood Cells 2.31 10^6/uL (4.0-5.20); White Blood Cell 10.7 10^3/uL (4.4-10.8)
[2023-06-02 04:34] LABS: Chloride 107 mmol/L (98-107); Potassium 3.6 mmol/L (3.5-5.1); Sodium 143 mmol/L (136-145)
[2023-06-02 04:35] LABS: Anion Gap 8 (5-15); Carbon Dioxide 28 mmol/L (20-30)
[2023-06-02 04:36] LABS: Calcium 9.3 mg/dL (8.7-10.4)
[2023-06-02 04:38] LABS: Red Cell Distribution Width 21.9 % (11.8-14.3)
[2023-06-02 04:40] LABS: BUN/Creatinine Ratio 5.2 (10.0-20.0); Band Neutrophils % (manual) 0; Basophils % (manual) 0 (0.0-2.0); Blast Cells 0; Blood Urea Nitrogen 21 mg/dL (9-23); Glucose 97 mg/dL (74-106); Metamyelocytes % 0; Promyelocytes % 0; Reactive Lymphocytes 0
[2023-06-02 06:48] LABS: Eosinophils % (manual) 3 (0-7); Lymphocytes % (manual) 10 (10.0-50.0); Monocytes % (manual) 6 (0-12); Myelocytes % 1; Platelet Estimate Decreased
[2023-06-02 08:17] LABS: Base Excess 1.1 mmol/L (-2.0-2.0)
[2023-06-02] MEDS: SODIUM CHL 0.9% 1000 ML BAG XX ONE ×2 (14:10→17:10)
[2023-06-02] MEDS: HEPARIN 1,000 UNITS/ml 1ML VIAL IV ONE (17:10)
[2023-06-02] MEDS ORDERED: NOREPINEPHRINE BITARTRATE 32 MG in SODIUM CHL 0.9% 218 ML IV SCH (22:00)
[2023-06-03] VITALS (109 sets, daily range): BP systolic 86–136; BP diastolic 59–91; PULSE 71–94; RESP 17–23; TEMP 97.7–99.3; O2SAT 94–100
[2023-06-03 05:59] LABS: Anion Gap 5 (5-15); Carbon Dioxide 31 mmol/L (20-30); Chloride 104 mmol/L (98-107); Potassium 4.1 mmol/L (3.5-5.1); Sodium 140 mmol/L (136-145)
[2023-06-03 06:01] LABS: Calcium 9.2 mg/dL (8.7-10.4)
[2023-06-03 06:05] LABS: BUN/Creatinine Ratio 4.9 (10.0-20.0); Blood Urea Nitrogen 13 mg/dL (9-23); Glucose 86 mg/dL (74-106)
[2023-06-03 07:18] LABS: Base Excess 3.5 mmol/L (-2.0-2.0)
[2023-06-04] VITALS (107 sets, daily range): BP systolic 85–122; BP diastolic 54–84; PULSE 63–97; RESP 16–21; TEMP 98–98.5; O2SAT 94–100
[2023-06-04 03:52] LABS: Basophils # (auto) 0 10 ^3/uL (0-0.2); Basophils % (auto) 0.2 % (0.0-2.0); Eosinophils # (auto) 0.4 10 ^3/uL (0-0.8); Eosinophils % (auto) 4.5 % (0.0-7.0); Hemoglobin 8.1 g/dL (12.2-16.2); Monocytes # (auto) 0.8 10 ^3/uL (0-1.3); Nucleated Red Blood Cells % 0.8 %
[2023-06-04 03:55] LABS: Hematocrit 25.4 % (36.0-46.0); Lymphocytes # (auto) 1.1 10 ^3/uL (0.4-5.4); Lymphocytes % (auto) 11.6 % (10.0-50.0); Mean Corpuscular Hemoglobin 36.3 pg (28.0-32.0); Mean Corpuscular Volume 113.3 fL (80.0-100.0); Monocytes % (auto) 8.2 % (0.0-12.0); Neutrophils % (auto) 75.5 % (37.0-80.0); Red Blood Cells 2.24 10^6/uL (4.0-5.20); White Blood Cell 9.3 10^3/uL (4.4-10.8)
[2023-06-04 04:03] LABS: Chloride 107 mmol/L (98-107); Potassium 3.9 mmol/L (3.5-5.1); Sodium 141 mmol/L (136-145)
[2023-06-04 04:04] LABS: Anion Gap 5 (5-15); Carbon Dioxide 29 mmol/L (20-30)
[2023-06-04 04:10] LABS: BUN/Creatinine Ratio 4.9 (10.0-20.0); Blood Urea Nitrogen 17 mg/dL (9-23); Glucose 116 mg/dL (74-106)
[2023-06-04 07:06] LABS: Base Excess 1.2 mmol/L (-2.0-2.0)
[2023-06-04 12:21] LABS: INR 1.16 (0.9-1.15); Prothrombin Time 12.1 sec (9.3-11.8)
[2023-06-05] VITALS (106 sets, daily range): BP systolic 83–145; BP diastolic 57–103; PULSE 73–101; RESP 14–23; TEMP 98.2–100.4; O2SAT 97–100
[2023-06-05 04:09] LABS: Hemoglobin 8.4 g/dL (12.2-16.2); White Blood Cell 9.7 10^3/uL (4.4-10.8)
[2023-06-05 04:11] LABS: Hematocrit 26.6 % (36.0-46.0); Mean Corpuscular Hemoglobin 35.8 pg (28.0-32.0); Mean Corpuscular Hgb Conc. 31.5 g/dL (32.0-36.0); Mean Corpuscular Volume 113.7 fL (80.0-100.0); Red Blood Cells 2.34 10^6/uL (4.0-5.20)
[2023-06-05 04:15] LABS: Alanine Aminotransferase 24 U/L (7-40); Albumin 3.1 g/dL (3.2-4.8); Alkaline Phosphatase 239 U/L (46-116); Anion Gap 5 (5-15); Aspartate Aminotransferase 44 U/L (13-40); BUN/Creatinine Ratio 6.5 (10.0-20.0); Blood Urea Nitrogen 26 mg/dL (9-23); Calcium 9.3 mg/dL (8.7-10.4); Carbon Dioxide 28 mmol/L (20-30); Chloride 108 mmol/L (98-107); Glucose 111 mg/dL (74-106); Potassium 3.9 mmol/L (3.5-5.1); Sodium 141 mmol/L (136-145)
[2023-06-05 04:16] LABS: INR 1.09 (0.9-1.15); Prothrombin Time 11.4 sec (9.3-11.8); Total Protein 5.5 g/dL (5.7-8.2)
[2023-06-05 04:25] LABS: Red Cell Distribution Width 22.3 % (11.8-14.3)
[2023-06-05 04:27] LABS: Basophils % (manual) 0 (0.0-2.0); Blast Cells 0; Metamyelocytes % 0; Myelocytes % 0; Promyelocytes % 0; Reactive Lymphocytes 0
[2023-06-05 05:09] LABS: Band Neutrophils % (manual) 7; Eosinophils % (manual) 7 (0-7); Lymphocytes % (manual) 11 (10.0-50.0)
[2023-06-05 05:10] LABS: Anisocytosis Slight; Macrocytosis Marked; Monocytes % (manual) 8 (0-12); Platelet Estimate Decreased
[2023-06-05 05:11] LABS: Large Platelets FEW; Polychromasia Slight
[2023-06-05] MEDS ORDERED: fentaNYL CITRATE 100 MCG/2 ML VL ONE (06:32)
[2023-06-05] MEDS: SODIUM CHL 0.9% 1000 ML BAG XX ONE (07:00)
[2023-06-05] MEDS ORDERED: ROCURONIUM 10MG/ML 10ML VIAL IV ONE (07:21)
[2023-06-05 11:13] LABS: Urine Bacteria FEW /hpf (None Seen); Urine Blood 3+ /uL (Negative); Urine Clarity HAZY (Clear); Urine Color Yellow (Yellow); Urine Mucus FEW (None Seen); Urine Protein, UAD 3+ (Negative); Urine Urobilinogen Normal (Negative); Urine WBC 182 /hpf (0 - 5)
[2023-06-05] MEDS: EPOETIN ALFA-EPBX 10,000 UNIT/1ML VIAL SC ONE (23:37)
[2023-06-06] VITALS (99 sets, daily range): BP systolic 83–141; BP diastolic 55–98; PULSE 73–104; RESP 14–33; TEMP 98.2–99.5; O2SAT 94–100
[2023-06-06 02:38] LABS: Hemoglobin 8.3 g/dL (12.2-16.2)
[2023-06-06 02:42] LABS: Hematocrit 26.2 % (36.0-46.0)
[2023-06-06 02:49] LABS: Anion Gap 6 (5-15); Calcium 8.9 mg/dL (8.7-10.4); Carbon Dioxide 28 mmol/L (20-30); Chloride 105 mmol/L (98-107); Potassium 4.1 mmol/L (3.5-5.1); Sodium 139 mmol/L (136-145)
[2023-06-06 02:55] LABS: BUN/Creatinine Ratio 6.2 (10.0-20.0); Blood Urea Nitrogen 17 mg/dL (9-23); Glucose 108 mg/dL (74-106)
[2023-06-06 08:13] LABS: Base Excess 0.2 mmol/L (-2.0-2.0)
[2023-06-06] MEDS: LIDOCAINE 2%HCL (LOCAL ANESTH.) INJ 20ML MDV ONE (09:29)
[2023-06-06] MEDS: HEPARIN SODIUM (PORCINE) 5000 UNITS/ML 1ML VIAL ONE (09:46)
[2023-06-06] MEDS: ceFAZolin 1GM/50ML 50 ML IV ONE (11:48)
[2023-06-06] MEDS: BUPIVACAINE 0.25% INJ 50ML VIAL ONE (14:00)
[2023-06-06] MEDS: LIDOCAINE 1%-Mpf/Epinephrine 1:200,000 30ml VIAL ONE (14:00)
[2023-06-07] VITALS (112 sets, daily range): BP systolic 89–140; BP diastolic 57–98; PULSE 72–95; RESP 13–33; TEMP 98.2–100.3; O2SAT 97–100
[2023-06-07 04:19] LABS: Hemoglobin 7.3 g/dL (12.2-16.2)
[2023-06-07 04:31] LABS: Chloride 104 mmol/L (98-107); Sodium 139 mmol/L (136-145)
[2023-06-07 04:32] LABS: Anion Gap 8 (5-15); Calcium 8.8 mg/dL (8.5-10.1); Carbon Dioxide 27 mmol/L (20-30)
[2023-06-07 04:37] LABS: BUN/Creatinine Ratio 6.6 (10.0-20.0); Blood Urea Nitrogen 23 mg/dL (9-23); Glucose 107 mg/dL (74-106)
[2023-06-07 08:05] LABS: Base Excess 1.4 mmol/L (-2.0-2.0)
[2023-06-07] MEDS ORDERED: NALOXONE HCL 0.4 MG/ML VIAL ONE (08:16)
[2023-06-07] MEDS ORDERED: FLUMAZENIL 0.1 MG/ML INJ 10ML MDV IV ONE (08:16)
[2023-06-07] MEDS: SODIUM CHL 0.9% 1000 ML BAG XX ONE (10:17)
[2023-06-07] MEDS: ROCURONIUM 10MG/ML 10ML VIAL IV ONE ×2 (17:01→17:34)
[2023-06-07] MEDS: ceFAZolin 1GM/50ML 50 ML IV ONE ×2 (17:36→17:37)
[2023-06-07] MEDS: ceFAZolin 1GM/50ML 100 ML IV ONE (17:36)
[2023-06-07] MEDS: EPOETIN ALFA-EPBX 10,000 UNIT/1ML VIAL SC ONE (21:13)
[2023-06-08] VITALS (116 sets, daily range): BP systolic 78–138; BP diastolic 52–90; PULSE 70–123; RESP 12–26; TEMP 98.3–100.1; O2SAT 73–100
[2023-06-08 04:08] LABS: Basophils # (auto) 0 10 ^3/uL (0-0.2); Hemoglobin 7.2 g/dL (12.2-16.2); Lymphocytes # (auto) 1.1 10 ^3/uL (0.4-5.4); Mean Corpuscular Volume 112.5 fL (80.0-100.0); Monocytes # (auto) 1.1 10 ^3/uL (0-1.3); Neutrophils # (auto) 5.2 10 ^3/uL (1.6-8.6); White Blood Cell 8.1 10^3/uL (4.4-10.8)
[2023-06-08 04:11] LABS: Basophils % (auto) 0.5 % (0.0-2.0); Eosinophils # (auto) 0.5 10 ^3/uL (0-0.8); Eosinophils % (auto) 6.8 % (0.0-7.0); Hematocrit 22.5 % (36.0-46.0); Lymphocytes % (auto) 13.6 % (10.0-50.0); Mean Corpuscular Hemoglobin 36.1 pg (28.0-32.0); Mean Corpuscular Hgb Conc. 32.1 g/dL (32.0-36.0); Neutrophils % (auto) 65.1 % (37.0-80.0); Nucleated Red Blood Cells % 0.4 %
[2023-06-08 04:21] LABS: Anion Gap 6 (5-15); Calcium 8.3 mg/dL (8.7-10.4); Carbon Dioxide 28 mmol/L (20-30); Chloride 104 mmol/L (98-107); Potassium 3.4 mmol/L (3.5-5.1); Sodium 138 mmol/L (136-145)
[2023-06-08 04:22] LABS: Red Cell Distribution Width 22.7 % (11.8-14.3)
[2023-06-08 04:27] LABS: BUN/Creatinine Ratio 4.6 (10.0-20.0); Blood Urea Nitrogen 11 mg/dL (9-23); Glucose 94 mg/dL (74-106)
[2023-06-08 05:20] LABS: Anisocytosis Slight; Macrocytosis Marked; Platelet Estimate Adequate; Polychromasia Slight
[2023-06-08 05:21] LABS: Stomatocytes Many
[2023-06-08] MEDS: Ensure Enlive Vanilla 8oz Bottle PO SCH (06:00)
[2023-06-08] MEDS: SODIUM CHL 0.9% 1000 ML BAG XX ONE (07:00)
[2023-06-08 09:47] LABS: Base Excess 1.5 mmol/L (-2.0-2.0)
[2023-06-08] MEDS: EPOETIN ALFA-EPBX 10,000 UNIT/1ML VIAL SC ONE (21:36)
[2023-06-09] VITALS (111 sets, daily range): BP systolic 85–137; BP diastolic 58–94; PULSE 83–111; RESP 11–37; TEMP 99–100.4; O2SAT 95–100
[2023-06-09 04:01] LABS: Chloride 102 mmol/L (98-107); Potassium 3.6 mmol/L (3.5-5.1); Sodium 139 mmol/L (136-145)
[2023-06-09 04:02] LABS: Anion Gap 7 (5-15); Calcium 8.7 mg/dL (8.5-10.1); Carbon Dioxide 30 mmol/L (20-30)
[2023-06-09 04:07] LABS: BUN/Creatinine Ratio 3.7 (10.0-20.0); Blood Urea Nitrogen 8 mg/dL (9-23); Glucose 100 mg/dL (74-106)
[2023-06-09 07:57] LABS: Base Excess 4.5 mmol/L (-2.0-2.0)
[2023-06-09] MEDS: ENOXAPARIN SOD 30 MG/0.3 ML SYRINGE SC SCH (10:00)
[2023-06-09] MEDS ORDERED: hydrOXYzine HCL 10 MG TAB GT PRN (13:00)
[2023-06-09] MEDS: ACETAMINOPHEN 650 mg PER 20.3 mL UD GT PRN (13:20)
[2023-06-10] VITALS (93 sets, daily range): BP systolic 88–137; BP diastolic 22–101; PULSE 62–99; RESP 12–35; TEMP 97.5–100.2; O2SAT 94–100
[2023-06-10 03:49] LABS: Basophils # (auto) 0.1 10 ^3/uL (0-0.2); Eosinophils # (auto) 0.6 10 ^3/uL (0-0.8); Hemoglobin 7.8 g/dL (12.2-16.2); Lymphocytes # (auto) 1.5 10 ^3/uL (0.4-5.4); Mean Corpuscular Volume 112.2 fL (80.0-100.0); Monocytes # (auto) 1.3 10 ^3/uL (0-1.3); Neutrophils # (auto) 7.7 10 ^3/uL (1.6-8.6)
[2023-06-10 03:51] LABS: Eosinophils % (auto) 5.5 % (0.0-7.0); Hematocrit 24.5 % (36.0-46.0); Lymphocytes % (auto) 13.3 % (10.0-50.0); Mean Corpuscular Hemoglobin 35.5 pg (28.0-32.0); Mean Corpuscular Hgb Conc. 31.6 g/dL (32.0-36.0); Monocytes % (auto) 11.4 % (0.0-12.0); Neutrophils % (auto) 68.8 % (37.0-80.0); Nucleated Red Blood Cells % 0.5 %; Red Blood Cells 2.18 10^6/uL (4.0-5.20); Red Cell Distribution Width 21.5 % (11.8-14.3); White Blood Cell 11.2 10^3/uL (4.4-10.8)
[2023-06-10 03:57] LABS: Chloride 104 mmol/L (98-107); Potassium 3.1 mmol/L (3.5-5.1); Sodium 139 mmol/L (136-145)
[2023-06-10 03:58] LABS: Anion Gap 6 (5-15); Calcium 9.8 mg/dL (8.7-10.4); Carbon Dioxide 29 mmol/L (20-30)
[2023-06-10 04:03] LABS: BUN/Creatinine Ratio 4.8 (10.0-20.0); Blood Urea Nitrogen 14 mg/dL (9-23); Glucose 122 mg/dL (74-106)
[2023-06-10] MEDS: POTASSIUM CHL 20MEQ/100ML 100 ML IV ONE (05:12)
[2023-06-10 07:39] LABS: Base Excess 3.1 mmol/L (-2.0-2.0)
[2023-06-10] MEDS: GLYCOPYRROLATE 0.2 MG/ML 1ML VIAL IV ONE (08:30)
[2023-06-10] MEDS: EPOETIN ALFA-EPBX 10,000 UNIT/1ML VIAL SC ONE (20:55)
[2023-06-11] VITALS (64 sets, daily range): BP systolic 91–149; BP diastolic 63–101; PULSE 50–107; RESP 14–27; TEMP 98.6–100.9; O2SAT 98–100
[2023-06-11 04:04] LABS: Anion Gap 6 (5-15); Carbon Dioxide 32 mmol/L (20-30); Chloride 103 mmol/L (98-107); Potassium 3.6 mmol/L (3.5-5.1); Sodium 141 mmol/L (136-145)
[2023-06-11 04:10] LABS: BUN/Creatinine Ratio 5.3 (10.0-20.0); Blood Urea Nitrogen 10 mg/dL (9-23); Glucose 144 mg/dL (74-106)
[2023-06-11 04:14] LABS: Hemoglobin 7.9 g/dL (12.2-16.2)
[2023-06-11 04:15] LABS: Hematocrit 24.8 % (36.0-46.0); Mean Corpuscular Hgb Conc. 31.9 g/dL (32.0-36.0); Mean Corpuscular Volume 112.6 fL (80.0-100.0)
[2023-06-11 04:29] LABS: Band Neutrophils % (manual) 0; Basophils % (manual) 0 (0.0-2.0); Blast Cells 0; Metamyelocytes % 0; Promyelocytes % 0; Reactive Lymphocytes 0
[2023-06-11 06:26] LABS: Eosinophils % (manual) 4 (0-7); Lymphocytes % (manual) 8 (10.0-50.0); Monocytes % (manual) 7 (0-12); Myelocytes % 3; Platelet Estimate Adequate
[2023-06-11 06:28] LABS: Anisocytosis Moderate; Macrocytosis Moderate
[2023-06-11 07:56] LABS: Base Excess 4.8 mmol/L (-2.0-2.0)
[2023-06-11] MEDS: BUMETANIDE 2.5mg/10ml (0.25 mg/ml) INJ IV SCH (16:01)
[2023-06-11] MEDS: HYDROcodone-ACET 5/325MG TAB PO PRN (23:36)
[2023-06-12] VITALS (53 sets, daily range): BP systolic 91–154; BP diastolic 59–107; PULSE 52–100; RESP 9–25; TEMP 98.8–100.2; O2SAT 98–100
[2023-06-12 04:10] LABS: Basophils # (auto) 0.1 10 ^3/uL (0-0.2); Eosinophils # (auto) 0.9 10 ^3/uL (0-0.8); Eosinophils % (auto) 9.5 % (0.0-7.0); Hematocrit 24.9 % (36.0-46.0); Hemoglobin 7.8 g/dL (12.2-16.2); Lymphocytes # (auto) 1.8 10 ^3/uL (0.4-5.4); Lymphocytes % (auto) 18.3 % (10.0-50.0); Mean Corpuscular Hemoglobin 35.3 pg (28.0-32.0); Mean Corpuscular Hgb Conc. 31.5 g/dL (32.0-36.0); Monocytes % (auto) 10.5 % (0.0-12.0); Neutrophils # (auto) 5.9 10 ^3/uL (1.6-8.6); Neutrophils % (auto) 60.7 % (37.0-80.0); Nucleated Red Blood Cells % 0.4 %; Red Blood Cells 2.22 10^6/uL (4.0-5.20); Red Cell Distribution Width 20.9 % (11.8-14.3); White Blood Cell 9.8 10^3/uL (4.4-10.8)
[2023-06-12 04:17] LABS: Albumin 3.2 g/dL (3.2-4.8); Alkaline Phosphatase 167 U/L (46-116); Anion Gap 8 (5-15); Aspartate Aminotransferase 25 U/L (13-40); BUN/Creatinine Ratio 7.2 (10.0-20.0); Bilirubin, Total 1.5 mg/dL (0.2-1.0); Blood Urea Nitrogen 19 mg/dL (9-23); Calcium 10.3 mg/dL (8.7-10.4); Carbon Dioxide 28 mmol/L (20-30); Chloride 105 mmol/L (98-107); Glucose 100 mg/dL (74-106); Potassium 3.2 mmol/L (3.5-5.1); Sodium 141 mmol/L (136-145)
[2023-06-12 04:29] LABS: Alanine Aminotransferase < 9 U/L (7-40)
[2023-06-12 08:02] LABS: Base Excess 4.4 mmol/L (-2.0-2.0)
[2023-06-12] MEDS: GLYCOPYRROLATE 0.2 MG/ML 1ML VIAL IV ONE (11:05)
[2023-06-12] MEDS: POTASSIUM CHL 20MEQ/100ML 100 ML IV ONE ×2 (17:45→18:19)
[2023-06-12] MEDS: BUMETANIDE 2.5mg/10ml (0.25 mg/ml) INJ IV SCH (18:02)
[2023-06-13] VITALS (58 sets, daily range): BP systolic 104–154; BP diastolic 68–104; PULSE 66–96; RESP 9–26; TEMP 99–100.4; O2SAT 98–100
[2023-06-13] MEDS: hydrOXYzine HCL 10 MG TAB GT PRN (02:48)
[2023-06-13 04:05] LABS: Anion Gap 9 (5-15); Calcium 10.5 mg/dL (8.7-10.4); Carbon Dioxide 28 mmol/L (20-30); Chloride 105 mmol/L (98-107); Potassium 3.4 mmol/L (3.5-5.1); Sodium 142 mmol/L (136-145)
[2023-06-13 04:11] LABS: BUN/Creatinine Ratio 9.1 (10.0-20.0); Blood Urea Nitrogen 28 mg/dL (9-23); Glucose 144 mg/dL (74-106)
[2023-06-13] MEDS: GLYCOPYRROLATE 0.2 MG/ML 1ML VIAL IV ONE (10:20)
[2023-06-13 15:51] LABS: Base Excess 3.2 mmol/L (-2.0-2.0)
[2023-06-13] MEDS: BUMETANIDE 1mg/4ml VIAL (0.25mg/ml) IV SCH (18:26)
[2023-06-14] VITALS (50 sets, daily range): BP systolic 102–146; BP diastolic 66–91; PULSE 53–91; RESP 9–25; TEMP 98.2–99.7; O2SAT 86–100
[2023-06-14 04:10] LABS: Basophils # (auto) 0.1 10 ^3/uL (0-0.2); Eosinophils # (auto) 1.1 10 ^3/uL (0-0.8); Eosinophils % (auto) 11.5 % (0.0-7.0); Hematocrit 26.1 % (36.0-46.0); Lymphocytes # (auto) 1.6 10 ^3/uL (0.4-5.4); Mean Corpuscular Hgb Conc. 31.6 g/dL (32.0-36.0); Nucleated Red Blood Cells % 0.1 %; Red Blood Cells 2.36 10^6/uL (4.0-5.20); White Blood Cell 9.6 10^3/uL (4.4-10.8)
[2023-06-14 04:14] LABS: Basophils % (auto) 0.6 % (0.0-2.0); Hemoglobin 8.3 g/dL (12.2-16.2); Lymphocytes % (auto) 17.1 % (10.0-50.0); Mean Corpuscular Volume 110.7 fL (80.0-100.0); Monocytes % (auto) 10.2 % (0.0-12.0); Neutrophils # (auto) 5.9 10 ^3/uL (1.6-8.6); Neutrophils % (auto) 60.6 % (37.0-80.0); Red Cell Distribution Width 19.8 % (11.8-14.3)
[2023-06-14 04:16] LABS: Chloride 107 mmol/L (98-107); Potassium 3.4 mmol/L (3.5-5.1); Sodium 145 mmol/L (136-145)
[2023-06-14 04:17] LABS: Anion Gap 6 (5-15); Calcium 10.9 mg/dL (8.5-10.1); Carbon Dioxide 32 mmol/L (20-30)
[2023-06-14 04:22] LABS: BUN/Creatinine Ratio 12.6 (10.0-20.0); Blood Urea Nitrogen 36 mg/dL (9-23); Glucose 117 mg/dL (74-106)
[2023-06-15] VITALS (42 sets, daily range): BP systolic 99–143; BP diastolic 65–92; PULSE 55–90; RESP 7–26; TEMP 97.1–99.9; O2SAT 86–100
[2023-06-15 05:04] LABS: Chloride 107 mmol/L (98-107); Potassium 3.1 mmol/L (3.5-5.1); Sodium 146 mmol/L (136-145)
[2023-06-15 05:05] LABS: Anion Gap 5 (5-15); Calcium 10.7 mg/dL (8.7-10.4); Carbon Dioxide 34 mmol/L (20-30)
[2023-06-15 05:10] LABS: BUN/Creatinine Ratio 15.6 (10.0-20.0); Blood Urea Nitrogen 38 mg/dL (9-23); Glucose 106 mg/dL (74-106)
[2023-06-15 12:11] LABS: COVID19 ANTIGEN SOFIA FIA NEGATIVE (NEGATIVE)
[2023-06-15] MEDS: POTASSIUM CHL 20MEQ/100ML 100 ML IV SCH (13:50)
[2023-06-16] VITALS (35 sets, daily range): BP systolic 96–138; BP diastolic 62–86; PULSE 66–85; RESP 10–28; TEMP 98.2–99.5; O2SAT 98–100
[2023-06-16 06:11] LABS: Anion Gap 5 (5-15); Carbon Dioxide 34 mmol/L (20-30); Chloride 109 mmol/L (98-107); Potassium 3.5 mmol/L (3.5-5.1); Sodium 148 mmol/L (136-145)
[2023-06-16 06:12] LABS: Calcium 10.1 mg/dL (8.7-10.4)
[2023-06-16 06:17] LABS: BUN/Creatinine Ratio 17.1 (10.0-20.0); Blood Urea Nitrogen 36 mg/dL (9-23); Glucose 122 mg/dL (74-106)
[2023-06-16] MEDS: BUMETANIDE 1mg/4ml VIAL (0.25mg/ml) IV SCH (09:31)
[2023-06-16] MEDS: FREE WATER GT SCH (12:00)
[2023-06-16] MEDS: POTASSIUM CHL 20MEQ/100ML 100 ML IV SCH (14:41)
[2023-06-17] VITALS (29 sets, daily range): BP systolic 105–147; BP diastolic 67–94; PULSE 58–96; RESP 8–21; TEMP 97.6–100; O2SAT 99–100
[2023-06-17 10:07] LABS: Basophils # (auto) 0.1 10 ^3/uL (0-0.2); Eosinophils # (auto) 0.5 10 ^3/uL (0-0.8); Hemoglobin 8.6 g/dL (12.2-16.2); Lymphocytes # (auto) 1.7 10 ^3/uL (0.4-5.4); Neutrophils # (auto) 7.1 10 ^3/uL (1.6-8.6); White Blood Cell 10.2 10^3/uL (4.4-10.8)
[2023-06-17 10:09] LABS: Basophils % (auto) 0.9 % (0.0-2.0); Eosinophils % (auto) 4.8 % (0.0-7.0); Hematocrit 27.4 % (36.0-46.0); Lymphocytes % (auto) 16.2 % (10.0-50.0); Mean Corpuscular Hemoglobin 34.1 pg (28.0-32.0); Mean Corpuscular Hgb Conc. 31.3 g/dL (32.0-36.0); Mean Corpuscular Volume 108.9 fL (80.0-100.0); Monocytes # (auto) 0.9 10 ^3/uL (0-1.3); Monocytes % (auto) 8.5 % (0.0-12.0); Neutrophils % (auto) 69.6 % (37.0-80.0); Red Blood Cells 2.52 10^6/uL (4.0-5.20); Red Cell Distribution Width 17.9 % (11.8-14.3)
[2023-06-17 10:10] LABS: Chloride 111 mmol/L (98-107); Potassium 3.9 mmol/L (3.5-5.1); Sodium 149 mmol/L (136-145)
[2023-06-17 10:11] LABS: Anion Gap 6 (5-15); Calcium 10.4 mg/dL (8.5-10.1); Carbon Dioxide 32 mmol/L (20-30)
[2023-06-17 10:16] LABS: BUN/Creatinine Ratio 21.6 (10.0-20.0); Blood Urea Nitrogen 38 mg/dL (9-23); Glucose 113 mg/dL (74-106)
[2023-06-18] VITALS (27 sets, daily range): BP systolic 111–140; BP diastolic 70–90; PULSE 60–97; RESP 7–24; TEMP 97.9–98.9; O2SAT 93–100
[2023-06-18 05:24] LABS: Albumin 3.8 g/dL (3.2-4.8); Alkaline Phosphatase 126 U/L (46-116); Anion Gap 5 (5-15); Aspartate Aminotransferase 25 U/L (13-40); BUN/Creatinine Ratio 19.4 (10.0-20.0); Bilirubin, Total 1.1 mg/dL (0.2-1.0); Blood Urea Nitrogen 32 mg/dL (9-23); Calcium 11.2 mg/dL (8.7-10.4); Carbon Dioxide 32 mmol/L (20-30); Chloride 111 mmol/L (98-107); Glucose 105 mg/dL (74-106); Potassium 3.4 mmol/L (3.5-5.1); Sodium 148 mmol/L (136-145); Total Protein 6.8 g/dL (5.7-8.2)
[2023-06-18 05:25] LABS: Alanine Aminotransferase < 9 U/L (7-40)
[2023-06-18] MEDS: POTASSIUM CHL 20MEQ/100ML 100 ML IV ONE ×2 (12:56→15:16)
[2023-06-18] MEDS: POTASSIUM CHL 20MEQ/100ML 100 ML IV SCH (12:59)
[2023-06-18] MEDS: FREE WATER GT SCH (17:32)
[2023-06-19] VITALS (34 sets, daily range): BP systolic 107–140; BP diastolic 73–98; PULSE 56–93; RESP 8–24; TEMP 97.5–99; O2SAT 93–100
[2023-06-19 09:28] LABS: Basophils # (auto) 0.1 10 ^3/uL (0-0.2); Hematocrit 27.9 % (36.0-46.0); Red Cell Distribution Width 17.5 % (11.8-14.3)
[2023-06-19 09:29] LABS: Basophils % (auto) 0.8 % (0.0-2.0); Eosinophils # (auto) 0.4 10 ^3/uL (0-0.8); Eosinophils % (auto) 5.3 % (0.0-7.0); Lymphocytes # (auto) 1.6 10 ^3/uL (0.4-5.4); Lymphocytes % (auto) 19.7 % (10.0-50.0); Mean Corpuscular Hemoglobin 35.3 pg (28.0-32.0); Mean Corpuscular Hgb Conc. 32.3 g/dL (32.0-36.0); Mean Corpuscular Volume 109.2 fL (80.0-100.0); Monocytes # (auto) 0.5 10 ^3/uL (0-1.3); Monocytes % (auto) 6.2 % (0.0-12.0); Neutrophils # (auto) 5.6 10 ^3/uL (1.6-8.6); Red Blood Cells 2.55 10^6/uL (4.0-5.20); White Blood Cell 8.3 10^3/uL (4.4-10.8)
[2023-06-19] MEDS: POTASSIUM EFFERVESENT TAB 25 MEQ GT ONE (09:39)
[2023-06-19] MEDS: FAMOTIDINE 20 MG TAB GT SCH (09:42)
[2023-06-19 10:24] LABS: Alkaline Phosphatase 121 U/L (46-116); Anion Gap 8 (5-15); BUN/Creatinine Ratio 26.8 (10.0-20.0); Blood Urea Nitrogen 34 mg/dL (9-23); Calcium 10.6 mg/dL (8.5-10.1); Carbon Dioxide 28 mmol/L (20-30); Chloride 111 mmol/L (98-107); Glucose 113 mg/dL (74-106); Potassium 4.3 mmol/L (3.5-5.1); Sodium 147 mmol/L (136-145)
[2023-06-19 10:26] LABS: Albumin 3.9 g/dL (3.2-4.8); Aspartate Aminotransferase 33 U/L (13-40); Total Protein 6.4 g/dL (5.7-8.2)
[2023-06-19 10:32] LABS: Alanine Aminotransferase < 9 U/L (7-40)
[2023-06-19] MEDS: ALPRAZolam 0.25 MG TAB PO PRN (18:15)
[2023-06-20] VITALS (22 sets, daily range): BP systolic 88–136; BP diastolic 58–89; PULSE 67–95; RESP 12–83; TEMP 97.6–98.6; O2SAT 95–100
[2023-06-20 05:09] LABS: Chloride 109 mmol/L (98-107); Potassium 4.4 mmol/L (3.5-5.1); Sodium 144 mmol/L (136-145)
[2023-06-20 05:10] LABS: Anion Gap 8 (5-15); Calcium 10.9 mg/dL (8.7-10.4); Carbon Dioxide 27 mmol/L (20-30)
[2023-06-20 05:15] LABS: BUN/Creatinine Ratio 19.3 (10.0-20.0); Blood Urea Nitrogen 26 mg/dL (9-23); Glucose 102 mg/dL (74-106)
[2023-06-21] VITALS (29 sets, daily range): BP systolic 94–123; BP diastolic 58–85; PULSE 67–85; RESP 9–22; TEMP 97.8–99.1; O2SAT 91–100
[2023-06-21 05:12] LABS: Hematocrit 29.4 % (36.0-46.0); Hemoglobin 9.4 g/dL (12.2-16.2)
[2023-06-21 05:23] LABS: Chloride 109 mmol/L (98-107); Potassium 3.8 mmol/L (3.5-5.1); Sodium 143 mmol/L (136-145)
[2023-06-21 05:24] LABS: Anion Gap 6 (5-15); Calcium 10.6 mg/dL (8.7-10.4); Carbon Dioxide 28 mmol/L (20-30)
[2023-06-21 05:29] LABS: BUN/Creatinine Ratio 26.7 (10.0-20.0); Blood Urea Nitrogen 36 mg/dL (9-23); Glucose 122 mg/dL (74-106)
[2023-06-22] VITALS (16 sets, daily range): BP systolic 105–145; BP diastolic 68–83; PULSE 58–89; RESP 7–19; TEMP 97.7–98.8; O2SAT 95–100
== END 2023-06-22 21:53 | DRG 5 ==
LOC: ER 02:24 → EDBD 02:24 → TELE 06:09 → ER 06:15 → ICU WEST 11:05 → DOU IN ICU 06-14 16:56
PROVIDERS: ADMIT Nurse Practitioner; ATTEND Nurse Practitioner Acute Care
PROC: 5A1955Z Respiratory Ventilation, Greater than 96 Consecutive Hours (ICD-10-PCS; principal; 2023-05-16)
PROC: 5A12012 Performance of Cardiac Output, Single, Manual (ICD-10-PCS; 2023-05-16)
PROC: 05HM33Z Insertion of Infusion Device into Right Internal Jugular Vein, Percutaneous Approach (ICD-10-PCS; 2023-05-16)
PROC: 0BH17EZ Insertion of Endotracheal Airway into Trachea, Via Natural or Artificial Opening (ICD-10-PCS; 2023-05-16)
PROC: 05HN33Z Insertion of Infusion Device into Left Internal Jugular Vein, Percutaneous Approach (ICD-10-PCS; 2023-05-22)
PROC: B544ZZA Ultrasonography of Left Jugular Veins, Guidance (ICD-10-PCS; 2023-05-22)
PROC: 5A1D70Z Performance of Urinary Filtration, Intermittent, Less than 6 Hours Per Day (ICD-10-PCS; 2023-05-22)
PROC: 5A1D70Z Performance of Urinary Filtration, Intermittent, Less than 6 Hours Per Day (ICD-10-PCS; 2023-05-23)
PROC: 5A1D70Z Performance of Urinary Filtration, Intermittent, Less than 6 Hours Per Day (ICD-10-PCS; 2023-05-25)
PROC: 5A1D70Z Performance of Urinary Filtration, Intermittent, Less than 6 Hours Per Day (ICD-10-PCS; 2023-05-26)
PROC: 5A1D70Z Performance of Urinary Filtration, Intermittent, Less than 6 Hours Per Day (ICD-10-PCS; 2023-05-28)
PROC: 30233N1 Transfusion of Nonautologous Red Blood Cells into Peripheral Vein, Percutaneous Approach (ICD-10-PCS; 2023-05-29)
PROC: 5A1D70Z Performance of Urinary Filtration, Intermittent, Less than 6 Hours Per Day (ICD-10-PCS; 2023-05-30)
PROC: 5A09357 Assistance with Respiratory Ventilation, Less than 24 Consecutive Hours, Continuous Positive Airway Pressure (ICD-10-PCS; 2023-05-31)
PROC: 5A1D70Z Performance of Urinary Filtration, Intermittent, Less than 6 Hours Per Day (ICD-10-PCS; 2023-05-31)
PROC: 4A023N7 Measurement of Cardiac Sampling and Pressure, Left Heart, Percutaneous Approach (ICD-10-PCS; 2023-06-01)
PROC: B211YZZ Fluoroscopy of Multiple Coronary Arteries using Other Contrast (ICD-10-PCS; 2023-06-01)
PROC: B215YZZ Fluoroscopy of Left Heart using Other Contrast (ICD-10-PCS; 2023-06-01)
PROC: 5A1D70Z Performance of Urinary Filtration, Intermittent, Less than 6 Hours Per Day (ICD-10-PCS; 2023-06-02)
PROC: 0B110F4 Bypass Trachea to Cutaneous with Tracheostomy Device, Open Approach (ICD-10-PCS; 2023-06-05)
PROC: 5A1955Z Respiratory Ventilation, Greater than 96 Consecutive Hours (ICD-10-PCS; 2023-06-05)
PROC: 5A1D70Z Performance of Urinary Filtration, Intermittent, Less than 6 Hours Per Day (ICD-10-PCS; 2023-06-05)
PROC: 0JH63XZ Insertion of Tunneled Vascular Access Device into Chest Subcutaneous Tissue and Fascia, Percutaneous Approach (ICD-10-PCS; 2023-06-06)
PROC: 02H633Z Insertion of Infusion Device into Right Atrium, Percutaneous Approach (ICD-10-PCS; 2023-06-06)
PROC: B5181ZA Fluoroscopy of Superior Vena Cava using Low Osmolar Contrast, Guidance (ICD-10-PCS; 2023-06-06)
PROC: B548ZZA Ultrasonography of Superior Vena Cava, Guidance (ICD-10-PCS; 2023-06-06)
PROC: 5A1D70Z Performance of Urinary Filtration, Intermittent, Less than 6 Hours Per Day (ICD-10-PCS; 2023-06-07)
PROC: 5A1D70Z Performance of Urinary Filtration, Intermittent, Less than 6 Hours Per Day (ICD-10-PCS; 2023-06-08)
PROC: 5A1D70Z Performance of Urinary Filtration, Intermittent, Less than 6 Hours Per Day (ICD-10-PCS; 2023-06-10)
DX: A41.9 Sepsis, unspecified organism (principal); K72.00 Acute and subacute hepatic failure without coma; I46.9 Cardiac arrest, cause unspecified; N17.0 Acute kidney failure with tubular necrosis; R65.21 Severe sepsis with septic shock; R64 Cachexia; G92.8 Other toxic encephalopathy; J18.9 Pneumonia, unspecified organism; K80.10 Calculus of gallbladder with chronic cholecystitis without obstruction; E46 Unspecified protein-calorie malnutrition; J96.01 Acute respiratory failure with hypoxia; E87.20 Acidosis, unspecified; N30.90 Cystitis, unspecified without hematuria; R56.9 Unspecified convulsions; E87.5 Hyperkalemia; E16.2 Hypoglycemia, unspecified; G20.A1 Parkinson's disease without dyskinesia, without mention of fluctuations; K76.0 Fatty (change of) liver, not elsewhere classified; G93.1 Anoxic brain damage, not elsewhere classified; E87.6 Hypokalemia; D69.6 Thrombocytopenia, unspecified; M62.82 Rhabdomyolysis; J90 Pleural effusion, not elsewhere classified; D64.9 Anemia, unspecified; I12.9 Hypertensive chronic kidney disease with stage 1 through stage 4 chronic kidney disease, or unspecified chronic kidney disease; N18.9 Chronic kidney disease, unspecified; I47.10 Supraventricular tachycardia, unspecified; F17.210 Nicotine dependence, cigarettes, uncomplicated; E87.70 Fluid overload, unspecified; I51.81 Takotsubo syndrome; E86.0 Dehydration; E83.52 Hypercalcemia; I21.A1 Myocardial infarction type 2; I51.7 Cardiomegaly; R18.8 Other ascites; F10.20 Alcohol dependence, uncomplicated; Z68.1 Body mass index [BMI] 19.9 or less, adult; Z99.11 Dependence on respirator [ventilator] status; Y90.9 Presence of alcohol in blood, level not specified
CPT/HCPCS: 36415; 36558; 36600; 70450; 70551; 71045; 74176; 76604; 76705; 76937; 77001; 80048; 80053; 80074; 80307; 80320; 81001; 82140; 82310; 82378; 82550; 82570; 82607; 82746; 82805; 82962; 83036; 83605; 83735; 83880; 84156; 84300; 84484; 85007; 85014; 85018; 85025; 85027; 85610; 85730; 86850; 86900; 86901; 86920; 87040; 87070; 87077; 87081; 87086; 87088; 87186; 87205; 87426; 90935; 92507; 92610; 93005; 93306; 93458; 94002; 94003; 94640; 95819; 96365; 96375; 97110; 97116; 97163; 97530; 99152; 99291; 99292; A4565; A4605; C9113; G0378; J0171; J1450; J1642; J2001; J2185; J2248; J2250; J2543; J2704; J3430; J3480; J3490; J7060; P9047; Q9967